=== PATIENT | female | born 1990 | race Caucasian/White ===

== ENCOUNTER → 2016-08-26 | Outpatient (CLI) | payer MEDICAID ==
[2016-08-26 20:46] LABS: BASO % 0.6 % (0.0-1.0); EOS # 0.2 K/mm3 (0.0-0.50); EOS % 2.6 % (0.0-3.0); LARGE UNSTAINED CELL # 0.1 K/mm3 (0.0-0.4); LARGE UNSTAINED CELL % 1.6 % (0.0-4.0); LYMPH # 2.3 K/mm3 (1.5-6.5); LYMPH % 31.1 % (24.0-44.0); MEAN CORPUSCULAR HEMOGLOBIN 30.4 pg (27.0-33.0); MEAN CORPUSCULAR HGB CONC 33.4 g/dl (32.0-36.5); MEAN CORPUSCULAR VOLUME 90.8 fl (80.0-96.0); MONO # 0.4 K/mm3 (0.0-0.8); NEUTROPHILS # 4.1 K/mm3 (1.8-7.7); NEUTROPHILS % 59.1 % (36.0-66.0); PLATELET COUNT, AUTOMATED 239 k/mm3 (150-450); RED CELL DISTRIBUTION WIDTH 13.1 % (11.5-14.5)
[2016-08-29 10:11] LABS: WHITE BLOOD COUNT 6.9 K/mm3 (4.0-10.0)
[2016-08-29 11:38] LABS: HIV SCRN NEGATIVE (NEGATIVE)
[2016-08-29 11:39] LABS: HIV SCRN1 NEGATIVE (NEGATIVE)
[2016-08-29 11:41] LABS: CONTROL LINE INT CTR LINE PRESENT
== END ==
LOC: M LRY 15:33
PROVIDERS: ATTEND Advanced Practice Midwife
DX: Z34.81 Encounter for supervision of other normal pregnancy, first trimester (principal)

== ENCOUNTER → 2016-11-29 | Outpatient (CLI) | payer MEDICAID ==
--- NOTE | 2016-11-29 17:14 | REP ---
Obstetric sonography: History: Supervision of , for anatomy. Findings: Scanning through the gravid uterus demonstrates a viable single intrauterine gestation in a cephalic lie. motion is observed and heart rate is recorded at 157 beats per minute. A posterior grade 0 placenta is seen without evidence of previa or abruption. Amniotic fluid is subjectively normal. Closed cervical length measured transabdominally is 3.9 cm. No extrauterine abnormalities observed. Exam quality is inhibited by maternal body habitus. No anomaly is seen. face and profile, diaphragm and spine are less than optimally seen or not seen due to position and maternal body habitus. The following additional anatomic structures are identified and felt to be unremarkable today: cranium, choroid plexus, cerebellum and posterior fossa, nuchal fold, lungs, four-chamber heart with left and right ventricular outflow tract views, left-sided stomach, abdominal wall cord insertion, three-vessel umbilical cord, kidneys and bladder, upper and lower extremities. Biometry chart: BPD 4.9 cm = 20 weeks 6 days HC 18.8 cm = 21 weeks 1 day AC 16.1 cm = 21 weeks 1 day FL 3.5 cm = 21 weeks 0 days HL 3.9 cm = 24 weeks 0 days CD 2.0 cm = 19 weeks 3 days HC/AC ratio normal 1.17. Cephalic index normal 0.72. Estimated weight 401 grams 0 pounds 14 ounces, 90th percentile for 20 weeks 0 days. Impression: Viable single intrauterine gestation at 20 weeks 6 days by today's composite criteria. anatomic survey less than complete as above. Signed by Maurice Lr MD 11/29/2016 05:24 P
== END ==
LOC: M LRY 13:54
PROVIDERS: ATTEND Advanced Practice Midwife
DX: Z34.82 Encounter for supervision of other normal pregnancy, second trimester (principal)

== ENCOUNTER → 2016-12-26 | Outpatient (CLI) | payer MEDICAID ==
[~2016-12-26] MED LIST: ACET50TA PO; FIOR1CAP PO; IBUP-1114 PO; METF500T13 PO; PRENTAB9 PO
--- NOTE | 2016-12-26 16:02 | REP ---
Clinical: Anatomical evaluation. Comparison: 11/29/2016 . Findings: Examination demonstrates a single live intrauterine in breech presentation. motion is identified by technologist. Placenta is noted posteriorly and grade zero without evidence for placenta previa or abruption. Amniotic fluid volume is normal. Cervix measures 3.5 cm in length and appears closed. No evidence for nuchal cord. Gestational age by LMP 23 weeks 6 days with VERONICA 04/18/2017 . Gestational age by current measurements 24 weeks 5 days with VERONICA 04/12/2017 . FHR equals 153 beats per minute. Estimated weight 735 grams ( 73rd percentile). Anatomical assessment demonstrates normal structures including cranium, choroid plexus, cavum, cerebellum/posterior fossa, lungs, diaphragm, stomach, cord insertion/three-vessel cord, bladder, and upper extremities. Limited evaluation of the facial features and spine are again noted along with moderate right hydronephrosis. Impression: 1. Single live intrauterine in breech presentation demonstrating appropriate interval growth. 2. Anatomical limitations as described above as well as right-sided hydronephrosis warrant reevaluation and follow-up. Signed by Williams Leiva MD 12/26/2016 03:54 P
== END ==
LOC: M LRY 13:47
PROVIDERS: ATTEND Advanced Practice Midwife
DX: Z34.82 Encounter for supervision of other normal pregnancy, second trimester (principal)

== ENCOUNTER → 2017-01-20 | Outpatient (CLI) | payer MEDICAID ==
[2017-01-20 13:36] LABS: MEAN CORPUSCULAR HEMOGLOBIN 31.4 pg (27.0-33.0); MEAN CORPUSCULAR HGB CONC 33.7 g/dl (32.0-36.5); RED CELL DISTRIBUTION WIDTH 13.9 % (11.5-14.5); WHITE BLOOD COUNT 9.9 K/mm3 (4.0-10.0)
== END ==
LOC: M SMT 08:32
PROVIDERS: ATTEND Advanced Practice Midwife
DX: Z34.82 Encounter for supervision of other normal pregnancy, second trimester (principal)

== ENCOUNTER → 2017-01-26 | Outpatient (CLI) | payer MEDICAID ==
--- NOTE | 2017-01-26 16:38 | REP ---
Obstetric ultrasound for follow-up of anatomy: Comparisons are 11/29/2016 and 12/26/2016. On the comparison studies, the facial features and spine could not be optimally demonstrated because of position. On the current study the facial features and spine are again unable to be satisfactorily demonstrated because of position. Remainder of the anatomy was previously unremarkable and is not repeated today. There is again a single intrauterine gestation in a vertex presentation. There is movement and cardiac activity with a heart rate of 150 beats per minute. There is a posterior placenta with no previa or abruptio with grade 2 maturity. The amniotic fluid volume subjectively is normal. Amniotic fluid index is 12.12 (and 23 - 22.9). The maternal adnexa and cul-de-sac are unremarkable. By the ultrasound today gestational age is 30 weeks 0 days. By the first ultrasound during this gestation 28 weeks 2 days and by LMP 20 weeks 2 days. weight is 1513 grams (3 pounds, ounces). This is the 88th percentile for 28 weeks 2 days. Signed by Anibal Mott MD 01/26/2017 04:30 P
== END ==
LOC: M LRY 14:11
PROVIDERS: ATTEND Advanced Practice Midwife
DX: Z34.82 Encounter for supervision of other normal pregnancy, second trimester (principal)

== ENCOUNTER → 2017-01-30 | Outpatient (CLI) | payer MEDICAID ==
[2017-01-30 20:33] LABS: MEAN CORPUSCULAR HEMOGLOBIN 30.8 pg (27.0-33.0); MEAN CORPUSCULAR HGB CONC 33.6 g/dl (32.0-36.5); MEAN CORPUSCULAR VOLUME 91.7 fl (80.0-96.0); RED CELL DISTRIBUTION WIDTH 13.7 % (11.5-14.5)
[2017-01-30 20:51] LABS: ALT/SGPT 20 U/L (12-78); AST/SGOT 12 U/L (15-37); BILIRUBIN,TOTAL 0.2 MG/DL (0.2-1.0); CREATININE FOR GFR 0.82 MG/DL (0.55-1.02); GLOMERULAR FILTRATION RATE > 60.0 (>60); URIC ACID 3.1 MG/DL (2.6-6.0)
== END ==
LOC: M WUC 15:59
PROVIDERS: ATTEND Obstetrics & Gynecology
DX: O16.3 Unspecified maternal hypertension, third trimester (principal); Z3A.00 Weeks of gestation of pregnancy not specified

== ENCOUNTER → 2017-02-03 | Outpatient (CLI) | payer MEDICAID | LOC: M LAB 08:02 | PROVIDERS: ATTEND Obstetrics & Gynecology | DX: O16.3 Unspecified maternal hypertension, third trimester (principal); Z3A.00 Weeks of gestation of pregnancy not specified ==

== ENCOUNTER → 2017-02-15 | Outpatient (CLI) | payer BC, MEDICAID ==
--- NOTE | 2017-02-15 15:19 | REP ---
OB ULTRASOUND: Real-time sonographic evaluation of gravid uterus performed. There is a single living intrauterine gestation, estimated gestational age 31 weeks 1 day, EDC 04/18/2017. Today's measurements indicate appropriate growth. BPD 81 mm = 31 weeks 3 days, 70th percentile HC 300 mm = 33 weeks 2 days, 83rd percentile AC 297 mm = 33 weeks 5 days, 88th percentile Femur length 62 mm = 32 weeks 2 days, 67th percentile HC/AC ratio 1.01, within normal range. Estimated weight 2118 grams, 87th percentile. Biophysical profile score is 8 out of 8. S/D ratio 3.26 within normal range. RI 0.69 within normal range. Today, the cerebellum, stomach, and bladder are visualized and are grossly unremarkable. position vertex. Amniotic fluid appears within normal limits. Placenta is fundal and grade 3 with no previa or abruption. heart rate is 144 beats per minute. Cervix is closed and measures 3.8 cm in length. IMPRESSION: Biophysical profile score 8 out of 8. Appropriate growth, as discussed in detail above. Signed by Anibal Staley MD 02/15/2017 05:25 P
== END ==
LOC: M RAD 13:56
PROVIDERS: ATTEND Specialist
DX: O13.3 Gestational [pregnancy-induced] hypertension without significant proteinuria, third trimester (principal); Z3A.31 31 weeks gestation of pregnancy

== ENCOUNTER → 2017-02-21 | Outpatient (CLI) | payer MEDICAID ==
--- NOTE | 2017-02-21 10:53 | REP ---
OB ULTRASOUND, BIOPHYSICAL PROFILE: Real-time sonographic evaluation of the gravid uterus performed. There is a single living intrauterine gestation. Estimated gestational age 32 weeks 0 days. EDC 04/18/2017. Feta heart rate 150 beats per minute. Amniotic fluid within normal limits. Amniotic fluid index (JOHN) is 10.8 within normal range of 8.6 - 24.2. Biophysical profile score is 8 out of 8. S/d ratio 2.61 within normal range of 2.5 - 3.5. RI 0.62 within normal range of 0.59 - 0.75. position vertex. Placenta is fundal and grade 3 with no previa or abruption. Signed by Anibal Staley MD 02/21/2017 04:49 P
== END ==
LOC: M RAD 09:13
PROVIDERS: ATTEND Specialist
DX: O13.3 Gestational [pregnancy-induced] hypertension without significant proteinuria, third trimester (principal); Z3A.00 Weeks of gestation of pregnancy not specified

== ENCOUNTER 2017-02-28 17:53 | Outpatient (CLI) | payer MEDICAID ==
[~2017-02-28] VITALS: Ht 167.6 cm; Wt 152.0 kg
[2017-02-28 18:15] VITALS: BP 142/67
[2017-02-28] MEDS ORDERED: PRENTAB9 PO (18:27)
== END 2017-02-28 19:00 | disposition home or self-care (01) ==
LOC: M LDO 17:53
PROVIDERS: ATTEND Specialist
DX: O36.8130 Decreased fetal movements, third trimester, not applicable or unspecified (principal); Z3A.33 33 weeks gestation of pregnancy; O24.415 Gestational diabetes mellitus in pregnancy, controlled by oral hypoglycemic drugs

== ENCOUNTER → 2017-02-28 | Outpatient (CLI) | payer MEDICAID ==
--- NOTE | 2017-02-28 13:42 | REP ---
BIOPHYSICAL PROFILE OB ULTRASOUND, 02/28/2017: COMPARISON: 02/21/2017 CLINICAL HISTORY: Gestational hypertension. Based on initial ultrasound, she would be 32 weeks 6 days, EDC 04/12/2017. Today's study shows a single intrauterine gestation in vertex presentation. skull shadowing limits evaluation of the cervix, its length cannot be measured. Amniotic fluid volume is visually normal with an index of 10.8, and the normal range is 8.6 to 24.2. Largest fluid pocket is 3.9 cm. Midcord umbilical artery Doppler shows S/D ratio 2.61 with normal forward diastolic flow and a resistive index of 0.62, also normal. Fundal placenta with some grade 3 maturation characteristics, no previa or abruption noted. No anatomic evaluation performed at this time. heart rate 150 and regular. BIOPHYSICAL PROFILE: Breathing 2 Movement 2 Tone 2 AFV 2 IMPRESSION: 1. Single intrauterine gestation in vertex presentation with skull shadowing the cervix. 2. Visually normal amniotic fluid and normal fluid index of 10.8 cm. 3. Normal cord Doppler S/D ratio, fundal grade 3 placenta without previa or abruption, and heart rate 150 and regular. 4. Biophysical profile score 8/8. Signed by Luciano Uriarte MD 02/28/2017 03:59 P
== END ==
LOC: M RAD 09:43
PROVIDERS: ATTEND Specialist
DX: O13.3 Gestational [pregnancy-induced] hypertension without significant proteinuria, third trimester (principal); Z3A.32 32 weeks gestation of pregnancy

== ENCOUNTER → 2017-03-07 | Outpatient (CLI) | payer MEDICAID ==
--- NOTE | 2017-03-07 10:44 | REP ---
Clinical: Gestational diabetes; growth re-evaluation. Comparison: 02/28/2017 . Findings: Examination demonstrates a single live intrauterine in cephalic presentation. motion is identified by technologist. Placenta is noted posteriorly and grade zero without evidence for placenta previa or abruption. Amniotic fluid volume is normal. Cervix measures 3.8 cm in length and appears closed. Nuchal cord cannot be excluded. Gestational age by LMP 34 weeks 0 days with VERONICA 04/18/2017 . Gestational age by current measurements 36 weeks 5 days with VERONICA 03/30/2017 . FHR equals 155 beats per minute. BPD 8.8 cm 35 weeks 3 days HC 32.5 cm 36 weeks 5 days AC 33.8 cm 37 weeks 5 days FL 7.1 cm 36 weeks 1 day HL 6.5 cm 37 weeks 4 days HC/AC ratio 0.96 Estimated weight 3082 grams (>97th percentile). BPP equals 8/8. JOHN equals 10.2 (8.1-24.8) Umbilical S/D ratio equals 3.30 (2.00-3.00) Impression: 1. Single live advanced gestation in cephalic presentation. Estimated weight is greater than 97 percentile. 2. Nuchal cord cannot be excluded. 3. Umbilical cord SD ratio minimally elevated. Signed by Williams Leiva MD 03/07/2017 10:35 A
== END ==
LOC: M RAD 09:41
PROVIDERS: ATTEND Specialist
DX: O13.3 Gestational [pregnancy-induced] hypertension without significant proteinuria, third trimester (principal); Z3A.00 Weeks of gestation of pregnancy not specified

== ENCOUNTER 2017-03-10 04:42 | Inpatient (IN) | payer MEDICAID ==
[~2017-03-10] VITALS: Ht 167.6 cm; Wt 164.1 kg
[2017-03-10] VITALS (36 sets, daily range): BP systolic 128–213; BP diastolic 60–105
[~2017-03-10 04:42] MED LIST changes: -ACET50TA PO; -FIOR1CAP PO; -IBUP-1114 PO; -METF500T13 PO
[2017-03-10] MEDS ORDERED: LR 1,000 ML IV SCH (06:15)
[2017-03-10] MEDS ORDERED: FIORICET TAB PO ONE ×2 (06:30→16:00)
--- NOTE | 2017-03-10 06:35 | ED PDOC ---
Provider Note 26-year-old 1, estimated date of delivery 04/18/2017. Presents at 34 weeks 3 days with complaints of severe headache since 01:30 this morning and associated vomiting. She reports taking 1 Fioricet at 0130 and a second one at 02:30 without relief from the headache. She denies visual disturbances, chest pain, shortness of breath. Fetus is active. has been complicated by morbid obesity, chronic hypertension and A2 gestational diabetes. She is currently taking metformin but no antihypertensive meds. She has been seen previously on labor and delivery for gestational hypertension and rule out preeclampsia. Patient appears uncomfortable, photophobic. Temperature 99.0 initial blood pressure 180/84 with repeat blood pressure of 163 /77. heart 145, moderate variability with accelerations, category 1 tracing. No contractions noted on the monitor. Assessment primipara at 34 weeks, chronic hypertension and severe headache. Reassuring status. Plan repeat preeclamptic panel, consult Belle Loomis CNM Mar 10, 2017 06:35
[2017-03-10 06:49] LABS: ALT/SGPT 20 U/L (12-78); AST/SGOT 16 U/L (15-37); BILIRUBIN,TOTAL 0.1 MG/DL (0.2-1.0); CREATININE FOR GFR 0.54 MG/DL (0.55-1.02); GLOMERULAR FILTRATION RATE > 60.0 (>60); URIC ACID 4.6 MG/DL (2.6-6.0)
--- NOTE | 2017-03-10 06:59 | ED PDOC ---
Provider Note CBC pending. AST 16, ALT 20. Uric Acid 4.6 Pro/Cre ratio 0.55 CBC pending Will consult Belle Batista CNM Mar 10, 2017 06:59
[2017-03-10 07:17] LABS: MEAN CORPUSCULAR HEMOGLOBIN 30.4 pg (27.0-33.0); MEAN CORPUSCULAR HGB CONC 33.6 g/dl (32.0-36.5); MEAN CORPUSCULAR VOLUME 90.7 fl (80.0-96.0); RED CELL DISTRIBUTION WIDTH 13.7 % (11.5-14.5); WHITE BLOOD COUNT 8.1 K/mm3 (4.0-10.0)
[2017-03-10] MEDS ORDERED: PROMETHAZINE INJ 25 MG/ML VIAL (J2550) IV PRN (09:30)
[2017-03-10] MEDS ORDERED: BUTORPHANOL 2 MG/ML INJ (J0595) IV ONE (09:30)
[2017-03-10] MEDS ORDERED: LABETALOL HCL 100 MG/20 ML VIAL IV ONE (09:30)
[2017-03-10] MEDS: BETAMETHASONE SOLUSPAN 6MG/ML INJ 5ML (J0702) IM SCH (10:02)
[2017-03-11] VITALS (8 sets, daily range): BP systolic 121–163; BP diastolic 58–109
[2017-03-11] MEDS: BETAMETHASONE SOLUSPAN 6MG/ML INJ 5ML (J0702) IM SCH (09:47)
--- NOTE | 2017-03-11 10:14 | DSES ---
DATE OF ADMISSION: 03/10/2017 DATE OF DISCHARGE: DISCHARGE DIAGNOSES: 1. Chronic hypertension. 2. Gestational diabetes. 3. Headache, resolved. DISCHARGE CONDITION: Stable. PROCEDURES PERFORMED WHILE IN THE HOSPITAL: She was provided with steroids for lung maturity. HISTORY AND HOSPITAL COURSE: Mrs. Ga is a 26-year-old, 1, who presented to labor and delivery at 34 weeks with complaints of headache in this patient with known chronic hypertension as well as gestational diabetes. She has a history also of headaches and was using Fioricet initially which provided relief, but later did not relieve her headache. She was admitted to labor and delivery and was provided Phenergan and Stadol which did relieve her headache. She did receive a subsequent dose of Fioricet which completely resolved her headache. She was monitored here where initially she had labile blood pressures. Once her headache resolved, her blood pressures returned to milder ranged, but mostly normal blood pressures. She completed her course of steroids for lung maturity and remained stable throughout this time and was discharged home with followup on Monday. DISCHARGE MEDICATIONS: - Fioricet - she was also instructed to resume her metformin DISCHARGE INSTRUCTIONS: 1. She has a followup appointment on Monday. 2. She was instructed on labor and precautions as well as preeclamptic precautions. 3. kick count instructions. PHYSICAL EXAM ON DATE OF DISCHARGE: Her vital signs were stable. She was afebrile. She has Category 1 heart tracing with irregular contractions on tocometer. Her general appearance is well appearing, in no acute distress. Her lungs were clear to auscultation bilaterally. Cardiovascular: Heart regular rate and rhythm. Abdomen gravid, nontender.
[2017-03-11] MEDS ORDERED: FIOR1CAP PO (10:16)
[2017-03-11] MEDS ORDERED: METF500T13 PO (10:16)
[2017-03-15 08:06] LABS: GC Butalbital 631 ng/mL (Cutoff=200)
== END 2017-03-11 10:35 | disposition home or self-care (01) | DRG 566 ==
LOC: M LDO 04:42 → M LDI 09:01 → M LDO 09:07 → M LDI 09:08
PROVIDERS: ADMIT Obstetrics & Gynecology; ATTEND Advanced Practice Midwife
DX: O10.913 Unspecified pre-existing hypertension complicating pregnancy, third trimester (principal); E66.01 Morbid (severe) obesity due to excess calories; O24.415 Gestational diabetes mellitus in pregnancy, controlled by oral hypoglycemic drugs; Z3A.34 34 weeks gestation of pregnancy; R51 Headache; O99.213 Obesity complicating pregnancy, third trimester

== ENCOUNTER 2017-03-14 13:06 | Inpatient (IN) | payer MEDICAID ==
[~2017-03-14] VITALS: Ht 167.6 cm; Wt 165.0 kg
[2017-03-14] VITALS (13 sets, daily range): BP systolic 125–188; BP diastolic 62–92
[~2017-03-14 13:06] MED LIST changes: -ACET50TA PO; -IBUP-1114 PO
[2017-03-14 16:01] LABS: MEAN CORPUSCULAR HEMOGLOBIN 29.9 pg (27.0-33.0); MEAN CORPUSCULAR HGB CONC 33.3 g/dl (32.0-36.5); MEAN CORPUSCULAR VOLUME 89.8 fl (80.0-96.0); RED CELL DISTRIBUTION WIDTH 14.1 % (11.5-14.5); WHITE BLOOD COUNT 10.4 K/mm3 (4.0-10.0)
[2017-03-14] MEDS: miSOPROStol 50 MCG 1/2 TAB (S0191) PO SCH ×2 (16:06→20:30)
[2017-03-14 16:29] LABS: ALT/SGPT 23 U/L (12-78); AST/SGOT 17 U/L (15-37); BILIRUBIN,TOTAL 0.1 MG/DL (0.2-1.0); CREATININE FOR GFR 0.57 MG/DL (0.55-1.02); GLOMERULAR FILTRATION RATE > 60.0 (>60); URIC ACID 4.9 MG/DL (2.6-6.0)
[2017-03-14] MEDS ORDERED: GLUCAGON FOR INJ 1 MG VIAL (J1610) SC PRN (21:00)
[2017-03-14] MEDS ORDERED: GLUCOSE 4 GM CHEW TABLET PO PRN (21:00)
[2017-03-14] MEDS ORDERED: DEXTROSE 50% 50 ML SYRINGE IV PRN (21:00)
[2017-03-14] MEDS ORDERED: HumaLOG INSULIN (NovoLOG) PER UNIT As Ordered ONE (21:01)
[2017-03-14] MEDS: HumaLOG INSULIN (NovoLOG) PER UNIT SC SCH (21:03)
--- NOTE | 2017-03-14 22:02 | HPE ---
DATE OF ADMISSION: 03/14/2017 REASON FOR ADMISSION: Induction of labor. HISTORY OF PRESENT ILLNESS: Ms. Ga is a 26-year-old 1 who presents at 35 weeks 0 days estimated gestational age by her last menstrual period, confirmed by first trimester ultrasound for induction of labor secondary to chronic hypertension with superimposed pre-eclampsia. Ms. Ga was seen earlier today at the office with a severe headache, that was unrelieved with Fioricet. She was also noted to have elevated blood pressure in the severe range 178/98. She was seen and evaluated this week in labor and delivery where she completed a course of steroids. Her course has also been remarkable for A2 gestational diabetes as well as obesity. PAST MEDICAL HISTORY: Obesity. Hypertension. PAST SURGICAL HISTORY: She has had surgery on her left hand. OBSTETRICAL HISTORY: She is 1. MEDICATIONS: Includes: - vitamins - Fioricet - metformin ALLERGIES: No known drug allergies. PHYSICAL EXAMINATION: Vital signs: Blood pressure 170s/90s. She is afebrile. She has a category 1 tracing. No contractions on tocometer. General appearance: No acute distress. Lungs: Clear to auscultation bilaterally. Cardiovascular: Heart regular rate and rhythm. Abdomen: Gravid. Her estimated weight 3200 grams. Her cervical exam shows long and closed. LABS: Blood type 0 negative. Antibody screen is negative. Rubella immune. RPR is not reactive. Hepatitis surface antigen negative. HIV negative. Hepatitis is nonreactive. Chlamydia and gonorrhea screen is negative. She had an elevated one hour Glucola as well as abnormal glucose on tolerance test. She is GBS positive. ASSESSMENT: 1. Ms. Ga is a 26-year-old 1 at 35 weeks with chronic hypertension with superimposed pre-eclampsia based on severely elevated blood pressures and persistent headache. 2. Reassuring status. 3. GBS positive. PLAN: 1. Admit to labor and delivery. CBC, RPR type and screen. Pre-eclamptic panel. 2. Labetalol as needed to maintain blood pressures below severe range. 3. Antibiotics in active labor after ruptured membranes for GBS positive status. 4. Magnesium sulfate in active phase of labor and plan to continue 24 hours for neuro prophylaxis. [facility]
[2017-03-15] VITALS (39 sets, daily range): BP systolic 112–186; BP diastolic 55–107
[2017-03-15] MEDS: miSOPROStol 50 MCG 1/2 TAB (S0191) PO SCH (00:30)
[2017-03-15] MEDS ORDERED: miSOPROStol 100 MCG TAB (S0191) PO SCH (05:00)
[2017-03-15] MEDS ORDERED: PENICILLIN G POTASSIUM IV 5 MU in D5W MINI-BAG PLUS 100 ML IV STA ×2 (07:30→18:04)
[2017-03-15] MEDS ORDERED: miSOPROStol 50 MCG 1/2 TAB (S0191) PO SCH (08:15)
[2017-03-15] MEDS: HumaLOG INSULIN (NovoLOG) PER UNIT SC SCH (10:46)
[2017-03-15] MEDS ORDERED: PENICILLIN G POTASSIUM IV 2.5 MU in D5W 100 ML IV SCH (11:30)
[2017-03-15] MEDS ORDERED: LR 1,000 ML IV SCH (13:26)
[2017-03-15] MEDS ORDERED: OXYTOCIN DRIP 30 UNITS in APPROPRIATE DILUENT 1 EA IV SCH (13:30)
[2017-03-15] MEDS ORDERED: LABETALOL 200 MG TAB PO ONE (19:15)
[2017-03-15] MEDS ORDERED: FENTANYL 2MCG/ML ROPIVACAINE 0.2% IN 0.9% NACL 200ML IVBAG As Ordered ONE (20:35)
[2017-03-15] MEDS: PENICILLIN G POTASSIUM IV 2.5 MU in D5W 100 ML IV SCH (22:30)
[2017-03-16] VITALS (37 sets, daily range): BP systolic 89–175; BP diastolic 52–110
[2017-03-16] MEDS: PENICILLIN G POTASSIUM IV 2.5 MU in D5W 100 ML IV SCH ×3 (02:45→12:01)
[2017-03-16] MEDS ORDERED: RHOGAM 300 MCG (1500 IU) INJ (J2790) IM SCH (09:00)
[2017-03-16] MEDS ORDERED: MEASLES,MUMPS,RUBELLA VACCINE INJ (MMR-II) (90707) SC SCH (09:00)
[2017-03-16] MEDS: PRENATAL VITAMINS CHEWABLE TABLET PO SCH (09:00)
[2017-03-16] MEDS: LR 1,000 ML IV SCH ×2 (13:40→21:40)
[2017-03-16] MEDS ORDERED: DOCUSATE SODIUM 100 MG CAP PO PRN (13:45)
[2017-03-16] MEDS ORDERED: OXYTOCIN INJ 10 UNITS/ML VIAL (J2590) IV ONE (13:45)
[2017-03-16] MEDS ORDERED: IBUPROFEN 800 MG TAB PO PRN (13:45)
[2017-03-16] MEDS ORDERED: PROMETHAZINE 25 MG TAB PO PRN (13:45)
[2017-03-16] MEDS ORDERED: ACETAMINOPHEN 500 MG TAB PO PRN (13:45)
[2017-03-16] MEDS ORDERED: ONDANSETRON 4MG/2ML VIAL (J2405) IV PRN (13:45)
[2017-03-16] MEDS ORDERED: DIBUCAINE 1% OINTMENT 30GM TOP PRN (13:45)
[2017-03-17] MEDS: LR 1,000 ML IV SCH ×3 (05:40→21:40)
[2017-03-17 06:44] VITALS: BP 112/58
[2017-03-17] MEDS: PRENATAL VITAMINS CHEWABLE TABLET PO SCH (10:16)
[2017-03-17 18:14] VITALS: BP 141/81
[2017-03-18] MEDS: LR 1,000 ML IV SCH (05:40)
[2017-03-18 06:00] VITALS: BP 154/67
[2017-03-18] MEDS: PRENATAL VITAMINS CHEWABLE TABLET PO SCH (09:52)
[2017-03-18] MEDS ORDERED: IBUP-1114 PO (10:22)
[2017-03-18] MEDS ORDERED: ACET50TA PO (10:22)
[2017-03-20 08:06] LABS: GC Butalbital 457 ng/mL (Cutoff=200)
== END 2017-03-18 11:05 | disposition home or self-care (01) | DRG 560 ==
LOC: M LDI 13:06 → M OBS 03-16 16:13
PROVIDERS: ADMIT Obstetrics & Gynecology; ATTEND Obstetrics & Gynecology
PROC: 10E0XZZ Delivery of Products of Conception, External Approach (ICD-10-PCS; principal; 2017-03-16)
PROC: 0KQM0ZZ Repair Perineum Muscle, Open Approach (ICD-10-PCS; 2017-03-16)
DX: O11.4 Pre-existing hypertension with pre-eclampsia, complicating childbirth (principal); E66.9 Obesity, unspecified; O24.425 Gestational diabetes mellitus in childbirth, controlled by oral hypoglycemic drugs; Z37.0 Single live birth; Z3A.35 35 weeks gestation of pregnancy; O99.214 Obesity complicating childbirth; O99.820 Streptococcus B carrier state complicating pregnancy; O69.82X0 Labor and delivery complicated by other cord entanglement, without compression, not applicable or unspecified; O70.1 Second degree perineal laceration during delivery

== ENCOUNTER → 2017-03-14 | Outpatient (CLI) | payer MEDICAID ==
[~2017-03-14] MED LIST changes: +ACET50TA PO; +FIOR1CAP PO; +IBUP-1114 PO; +METF500T13 PO
--- NOTE | 2017-03-14 10:56 | REP ---
Obstetric ultrasound for well-being and hypertension. Based on the first ultrasound during this gestation gestational age is 35 weeks 6 days with an VERONICA of 04/12/2017. There is a single intrauterine gestation in a vertex presentation. heart rate is 160 beats per minute. Subjectively the amniotic fluid volume is normal. The amniotic fluid index is 7.2 (7.9 - 24.9). biophysical profile: Breathing 2 Movement 2 Tone 2 AFV 2 Total / Umbilical artery Doppler assessment: SD ratio 2.98. (2.00 - 3.00) Resistive index 0.66 (0.59 dash 0.75) Diastolic flow velocity 18.8 cm/sec. (Normal is greater than 10 cm/sec). Signed by Anibal Mott MD 03/14/2017 10:48 A
== END ==
LOC: M RAD 10:01
PROVIDERS: ATTEND Specialist
DX: Z36 Encounter for antenatal screening of mother (principal); Z3A.00 Weeks of gestation of pregnancy not specified

== ENCOUNTER → 2017-06-27 | Outpatient (CLI) | payer MEDICAID, MEDICARE ==
[2017-06-27 08:38] LABS: GLUCOSE, FASTING 95 MG/DL (70-105)
[2017-06-27 08:50] LABS: ESTIMATED AVERAGE GLUCOSE 108 MG/DL (60-110); HEMOGLOBIN A1c 5.4 %
[2017-06-27 09:59] LABS: 1 HR GLUCOSE 156 MG/DL (LESS THAN 199)
[2017-06-27 10:59] LABS: 2 HR GLUCOSE 128 MG/DL (LESS THAN 140)
== END ==
LOC: M LAB 07:58
DX: Z86.32 Personal history of gestational diabetes (principal)
CPT/HCPCS: 82951

== ENCOUNTER 2017-10-21 09:31 | Emergency (ER) | payer MEDICARE, MEDICAID ==
[2017-10-21] MEDS: GI COCKTAIL 50ML BTL(HYOSCYAMINE/MAALOX/LIDOCAINE VISCOUS)(1:3:1) PO (10:15)
[2017-10-21] MEDS: ONDANSETRON 4 MG ORAL DISINTEGRATING TAB (Q0162 PER 1MG) PO (10:15)
[2017-10-21 10:35] LABS: BASO % 0.4 % (0.0-1.0); EOS # 0.1 10^3/uL (0.0-0.50); EOS % 1.1 % (0.0-3.0); HEMATOCRIT 39.7 % (36.0-47.0); HEMOGLOBIN 13.1 g/dl (12.0-15.5); IMMATURE GRANULOCYTE % 0.4 % (0-3.0); LYMPH # 2.5 10^3/uL (1.5-6.5); LYMPH % 30.4 % (24.0-44.0); MEAN CORPUSCULAR HEMOGLOBIN 28.5 pg (27.0-33.0); MEAN CORPUSCULAR VOLUME 86.5 fl (80.0-96.0); MONO # 0.5 10^3/uL (0.0-0.8); MONO % 6.3 % (0.0-5.0); NEUTROPHILS % 61.4 % (36.0-66.0); PLATELET COUNT, AUTOMATED 242 10^3/uL (150-450); RED BLOOD COUNT 4.59 10^6/uL (4.00-5.40); WHITE BLOOD COUNT 8.1 10^3/uL (4.0-10.0)
[2017-10-21 11:13] LABS: ALKALINE PHOSPHATASE 118 U/L (45-117); ALT/SGPT 26 U/L (12-78); ANION GAP 5 MEQ/L (8-16); AST/SGOT 14 U/L (7-37); BILIRUBIN,TOTAL 0.2 MG/DL (0.2-1.0); BLOOD UREA NITROGEN 23 MG/DL (7-18); CARBON DIOXIDE LEVEL 26 MEQ/L (21-32); CHLORIDE LEVEL 108 MEQ/L (98-107); CPK CREATINE PHOSPHOKINASE 91 U/L (26-192); GLOMERULAR FILTRATION RATE > 60.0 (>60); GLUCOSE, FASTING 90 MG/DL (70-100); LIPASE 156 U/L (73-393); MB/CK RELATIVE INDEX 1.09 (< OR =4); POTASSIUM SERUM 4.5 MEQ/L (3.5-5.1); SODIUM LEVEL 139 MEQ/L (136-145); TROPONIN I < 0.02 NG/ML (< 0.10)
== END 2017-10-21 11:46 | disposition home or self-care (01) ==
LOC: M ED 09:31
DX: K21.9 Gastro-esophageal reflux disease without esophagitis (principal); R06.02 Shortness of breath; R11.0 Nausea; Z82.49 Family history of ischemic heart disease and other diseases of the circulatory system; Z91.030 Bee allergy status; Z79.899 Other long term (current) drug therapy
CPT/HCPCS: Q0162

== ENCOUNTER → 2018-03-01 | Outpatient (CLI) | payer MEDICAID, MEDICARE ==
[2018-03-01 10:54] LABS: 1 HR GLUCOSE 151 MG/DL (LESS THAN 199)
[2018-03-01 10:54] LABS: GLUCOSE, FASTING 95 MG/DL (70-100)
[2018-03-01 12:08] LABS: 2 HR GLUCOSE 121 MG/DL (LESS THAN 140)
== END ==
LOC: M LAB 08:28
DX: E66.01 Morbid (severe) obesity due to excess calories (principal)
CPT/HCPCS: 82951

== ENCOUNTER → 2018-07-05 | Outpatient (REF) | payer OTHER ==
[~2018-07-05] MED LIST changes: +IBUP-1114 PO; +MAPA500T2 PO; +RANI15TA PO; +SERT-155 PO
== END ==
LOC: M SFHCLERA 18:21
PROVIDERS: ATTEND Physician Assistant
DX: R50.9 Fever, unspecified (principal)

== ENCOUNTER 2018-11-05 07:28 | Emergency (ER) | payer MEDICARE, MEDICAID ==
[~2018-11-05] VITALS: Ht 167.6 cm; Wt 168.2 kg
--- NOTE | 2018-11-05 07:57 | REP ---
Clinical: Acute chest pain . Comparison: 10/21/2017 . Findings: The mediastinum and cardiac silhouette are stable and within normal limits for portable technique. The lung bryant are clear without acute consolidation, effusion, or pneumothorax. Skeletal structures are intact. Impression: No acute cardiopulmonary process appreciated. Electronically Signed by Williams Leiva MD 11/05/2018 07:49 A
[2018-11-05] MEDS ORDERED: ONDANSETRON 4MG/2ML VIAL (J2405) As Ordered ONE (08:05)
[2018-11-05 08:13] LABS: BASO % 0.3 % (0.0-1.0); EOS # 0.1 10^3/uL (0.0-0.50); EOS % 1.4 % (0.0-3.0); HEMATOCRIT 42.5 % (36.0-47.0); HEMOGLOBIN 14.1 g/dl (12.0-15.5); LYMPH # 2.7 10^3/uL (1.5-6.5); LYMPH % 37.2 % (24.0-44.0); MEAN CORPUSCULAR HEMOGLOBIN 29.1 pg (27.0-33.0); MEAN CORPUSCULAR HGB CONC 33.2 g/dl (32.0-36.5); MEAN CORPUSCULAR VOLUME 87.6 fl (80.0-96.0); MONO # 0.6 10^3/uL (0.0-0.8); MONO % 7.9 % (0.0-5.0); NEUTROPHILS # 3.9 10^3/uL (1.8-7.7); NEUTROPHILS % 53.1 % (36.0-66.0); PLATELET COUNT, AUTOMATED 221 10^3/uL (150-450); RED BLOOD COUNT 4.85 10^6/uL (4.00-5.40); WHITE BLOOD COUNT 7.4 10^3/uL (4.0-10.0)
[2018-11-05] MEDS ORDERED: ONDANSETRON 4 MG ORAL DISINTEGRATING TAB (Q0162 PER 1MG) PO ONE (08:15)
[2018-11-05 08:58] LABS: ALT/SGPT 24 U/L (12-78); BILIRUBIN,DIRECT < 0.1 MG/DL (0.0-0.2); BILIRUBIN,TOTAL 0.2 MG/DL (0.2-1.0); BLOOD UREA NITROGEN 18 MG/DL (7-18); CALCIUM LEVEL 9.7 MG/DL (8.5-10.1); CARBON DIOXIDE LEVEL 26 MEQ/L (21-32); CHLORIDE LEVEL 106 MEQ/L (98-107); CK-MB VALUE MASS < 1.0 NG/ML (<3.6); CPK CREATINE PHOSPHOKINASE 105 U/L (26-192); CREATININE FOR GFR 0.74 MG/DL (0.55-1.30); GLOMERULAR FILTRATION RATE > 60.0 (>60); GLUCOSE, FASTING 97 MG/DL (70-100); LIPASE 124 U/L (73-393); MB/CK RELATIVE INDEX 0.95 (< OR =4); POTASSIUM SERUM 4.6 MEQ/L (3.5-5.1); SODIUM LEVEL 137 MEQ/L (136-145); TOTAL PROTEIN 7.9 GM/DL (6.4-8.2); TROPONIN I < 0.02 NG/ML (< 0.10)
[2018-11-05] MEDS ORDERED: PRIL20TA2 PO (09:47)
[2018-11-05 10:00] VITALS: BP 126/61
--- NOTE | 2018-11-05 12:13 | ECGEPIP ---
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
== END 2018-11-05 10:06 | disposition home or self-care (01) ==
LOC: M ED 07:28
DX: R07.89 Other chest pain (principal); K29.70 Gastritis, unspecified, without bleeding
CPT/HCPCS: 71045; 80048; 80076; 82550; 82553; 83690; 84484; 85025; 93005; 93041; 94760; 99285; Q0162

== ENCOUNTER → 2020-01-30 | Outpatient (CLI) | payer MEDICARE, MEDICAID ==
[~2020-01-30] MED LIST changes: +PRIL20TA2 PO; -SERT-155 PO; +SERT50TA29 PO
[2020-03-28 15:47] LABS: HEMOGLOBIN A1c 5.3 %
== END ==
LOC: M LAB 13:50
PROVIDERS: ATTEND Surgery
DX: Z86.39 Personal history of other endocrine, nutritional and metabolic disease (principal)

== ENCOUNTER → 2020-02-28 | Outpatient (CLI) | payer MEDICARE, MEDICAID ==
[2020-02-28 19:33] LABS: BASO % 0.2 % (0.0-1.0); EOS # 0.1 10^3/uL (0.0-0.5); EOS % 1.3 % (0.0-3.0); HEMATOCRIT 39.3 % (36.0-47.0); HEMOGLOBIN 12.6 g/dl (12.0-15.5); LYMPH # 1.9 10^3/uL (1.5-5.0); LYMPH % 31.4 % (24.0-44.0); MEAN CORPUSCULAR HGB CONC 32.1 g/dl (32.0-36.5); MEAN CORPUSCULAR VOLUME 90.6 fl (80.0-96.0); MONO # 0.5 10^3/uL (0.0-0.8); NEUTROPHILS # 3.5 10^3/uL (1.5-8.5); NEUTROPHILS % 58.9 % (36.0-66.0); PLATELET COUNT, AUTOMATED 197 10^3/uL (150-450); RED BLOOD COUNT 4.34 10^6/uL (4.00-5.40)
[2020-02-28 20:02] LABS: ALBUMIN 3.8 GM/DL (3.2-5.2); ALT/SGPT 37 U/L (12-78); AMYLASE 39 U/L (25-115); BILIRUBIN,TOTAL 0.3 MG/DL (0.2-1.0); BLOOD UREA NITROGEN 5 MG/DL (7-18); CALCIUM LEVEL 9.1 MG/DL (8.5-10.1); CARBON DIOXIDE LEVEL 25 MEQ/L (21-32); CHLORIDE LEVEL 106 MEQ/L (98-107); CK-MB VALUE MASS < 1.0 NG/ML (<3.6); CPK CREATINE PHOSPHOKINASE 55 U/L (26-192); CREATININE FOR GFR 0.42 MG/DL (0.55-1.30); GLOMERULAR FILTRATION RATE > 60.0 (>60); GLUCOSE, FASTING 88 MG/DL (70-100); LIPASE 169 U/L (73-393); MB/CK RELATIVE INDEX 1.82 (< OR =4); POTASSIUM SERUM 4.1 MEQ/L (3.5-5.1); SODIUM LEVEL 139 MEQ/L (136-145); TOTAL PROTEIN 7.1 GM/DL (6.4-8.2); TROPONIN I < 0.02 NG/ML (< 0.10)
== END ==
LOC: M WUC 17:03
PROVIDERS: ATTEND Nurse Practitioner Family
DX: R10.816 Epigastric abdominal tenderness (principal)

== ENCOUNTER → 2020-02-28 | Outpatient (REF) | payer MEDICARE, MEDICAID | LOC: M LAB REF 19:04 | PROVIDERS: ATTEND Nurse Practitioner Family | DX: N39.0 Urinary tract infection, site not specified (principal) ==

== ENCOUNTER → 2020-11-26 | Outpatient (CLI) | payer SELFPAY ==
[~2020-11-26] MED LIST changes: +BUSP10TA PO; +CALC250T PO; +CYAN100050 PO; +FLIN1CHW PO; +FLUO10CA16 PO
== END ==
LOC: M LABSMTC 10:08
PROVIDERS: ATTEND Pediatrics
DX: Z20.828 Contact with and (suspected) exposure to other viral communicable diseases (principal); Z11.59 Encounter for screening for other viral diseases

== ENCOUNTER 2020-11-29 02:01 | Observation (INO) | payer MEDICARE, MEDICAID ==
[~2020-11-29] VITALS: Ht 167.6 cm; Wt 97.0 kg
[~2020-11-29 02:01] MED LIST changes: -BUSP10TA PO; -CALC250T PO; -CYAN100050 PO; -FLIN1CHW PO; -FLUO10CA16 PO
--- NOTE | 2020-11-29 04:06 | REPVR ---
PROCEDURE INFORMATION: Exam: XR Chest Exam date and time: 11/29/2020 3:02 AM Age: 30 years old Clinical indication: Other: Chest pain TECHNIQUE: Imaging protocol: XR of the chest. Views: 1 view. COMPARISON: CR PORTABLE CHEST X-RAY 11/05/2018 7:43 AM FINDINGS: Lungs: There is no visualized lung consolidation. Prominence of pulmonary vascular markings within the lungs bilaterally. Pleural spaces: No pleural effusion. No pneumothorax. Heart/Mediastinum: No cardiomegaly. Bones/joints: No visualized acute osseous abnormality. IMPRESSION: 1. There is no visualized lung consolidation. 2. Prominence of pulmonary vascular markings within the lungs bilaterally. Electronically signed by: Dc Hassan On 11/29/2020 04:05:34 AM
[2020-11-29 06:18] LABS: HCG, SERUM QUALITATIVE NEGATIVE (NEGATIVE)
[2020-11-29 06:21] LABS: BLOOD UREA NITROGEN 9 MG/DL (7-18); CALCIUM LEVEL 8.9 MG/DL (8.5-10.1); CARBON DIOXIDE LEVEL 24 MEQ/L (21-32); CHLORIDE LEVEL 112 MEQ/L (98-107); CK-MB VALUE MASS < 1.0 NG/ML (<3.6); CPK CREATINE PHOSPHOKINASE 85 U/L (26-192); CREATININE FOR GFR 0.64 MG/DL (0.55-1.30); GLOMERULAR FILTRATION RATE > 60.0 (>60); GLUCOSE, FASTING 119 MG/DL (70-100); HEMATOCRIT 37.2 % (36.0-47.0); HEMOGLOBIN 12.2 g/dl (12.0-15.5); LYMPH # 0.9 10^3/uL (1.5-5.0); LYMPH % 18.7 % (24.0-44.0); MB/CK RELATIVE INDEX 1.18 (< OR =4); MEAN CORPUSCULAR HEMOGLOBIN 30.4 pg (27.0-33.0); MEAN CORPUSCULAR HGB CONC 32.8 g/dl (32.0-36.5); MEAN CORPUSCULAR VOLUME 92.8 fl (80.0-96.0); MONO # 0.2 10^3/uL (0.0-0.8); NEUTROPHILS # 3.6 10^3/uL (1.5-8.5); NEUTROPHILS % 75.9 % (36.0-66.0); NT-PRO BNP 89 PG/ML (<125); PLATELET COUNT, AUTOMATED 216 10^3/uL (150-450); POTASSIUM SERUM 4.4 MEQ/L (3.5-5.1); RED BLOOD COUNT 4.01 10^6/uL (4.00-5.40); SODIUM LEVEL 142 MEQ/L (136-145); TROPONIN I < 0.02 NG/ML (< 0.10); WHITE BLOOD COUNT 4.8 10^3/uL (4.0-10.0)
--- NOTE | 2020-11-29 06:31 | ECGEPIP ---
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
[2020-11-29] MEDS ORDERED: ACETAMINOPHEN 500 MG TAB PO ONE (06:40)
[2020-11-29] MEDS ORDERED: NS 1,000 ML IV ONE (06:40)
[2020-11-29] MEDS ORDERED: ISOVUE-370 76% 100ML VIAL As Ordered ONE ×2 (06:47→09:22)
--- NOTE | 2020-11-29 07:25 | REPVR ---
PROCEDURE INFORMATION: Exam: CT Head Without Contrast Exam date and time: 11/29/2020 7:03 AM Age: 30 years old Clinical indication: Pain; Headache not specified; Additional info: New headache, no pmh, ongoing 1 week, dizziness TECHNIQUE: Imaging protocol: Computed tomography of the head without contrast. Radiation optimization: All CT scans at this facility use at least one of these dose optimization techniques: automated exposure control; mA and/or kV adjustment per patient size (includes targeted exams where dose is matched to clinical indication); or iterative reconstruction. COMPARISON: No relevant prior studies available. FINDINGS: Brain: There is a subtle faint density in the left sylvian fissure on axial image 12 and coronal image 19. No intra-axial hemorrhage. Unremarkable white matter. No mass effect. Cerebral ventricles: No ventriculomegaly. Paranasal sinuses: Visualized sinuses are unremarkable. No fluid levels. Mastoid air cells: Visualized mastoid air cells are well aerated. Bones/joints: No fracture seen. Soft tissues: Unremarkable. IMPRESSION: Subtle faint density in the left sylvian fissure most likely crossing vessel or artifact however subtle of subarachnoid blood cannot be completely excluded. Follow-up CT scan in 6-12 hours is suggested. Electronically signed by: Julio De Los Santos On 11/29/2020 07:24:28 AM
--- NOTE | 2020-11-29 07:27 | REPVR ---
PROCEDURE INFORMATION: Exam: CTA Chest With Contrast Exam date and time: 11/29/2020 7:03 AM Age: 30 years old Clinical indication: Other: Dizziness; Additional info: Dizziness, tachycardia RO pe TECHNIQUE: Imaging protocol: Computed tomographic angiography of the chest with contrast. 3D rendering (Not supervised by radiologist): MIP and/or 3D reconstructed images were created by the technologist. Radiation optimization: All CT scans at this facility use at least one of these dose optimization techniques: automated exposure control; mA and/or kV adjustment per patient size (includes targeted exams where dose is matched to clinical indication); or iterative reconstruction. Contrast material: ISOVUE 370; Contrast volume: 75 ml; Contrast route: INTRAVENOUS (IV); COMPARISON: CR PORTABLE CHEST X-RAY 11/29/2020 2:37 AM FINDINGS: Pulmonary arteries: The study is nondiagnostic for the evaluation of segmental and subsegmental pulmonary and arteries due to heterogeneous and poor opacification. No central filling defect seen in the pulmonary trunk or right or left main pulmonary arteries. The pulmonary trunk is normal in caliber measuring 2.5 cm in diameter. Aorta: Evaluation of the ascending aorta is limited due to pulsation artifact. Otherwise, No aortic aneurysm or aortic dissection seen. Lungs: Unremarkable. No consolidation. No masses. Pleural spaces: Unremarkable. No pneumothorax. No pleural effusion. Heart: The heart is normal in size. There is no pericardial effusion. Lymph nodes: Unremarkable. No enlarged lymph nodes. Stomach and bowel: The patient is status post gastric bypass with grossly intact proximal anastomosis. Bones/joints: Unremarkable. No acute fracture. Soft tissues: Unremarkable. IMPRESSION: No central pulmonary emboli and no CT evidence of right heart strain. Study is nondiagnostic for the evaluation of segmental and subsegmental pulmonary arteries due to poor and heterogeneous opacification. Electronically signed by: Julio De Los Santos On 11/29/2020 07:27:30 AM
[2020-11-29] MEDS ORDERED: SERTRALINE HCL 50 MG TAB PO ONE (07:50)
[2020-11-29] MEDS ORDERED: busPIRone 10 MG TAB PO ONE (07:50)
--- NOTE | 2020-11-29 09:37 | REPVR ---
PROCEDURE INFORMATION: Exam: MR Head Without Contrast Exam date and time: 11/29/2020 8:51 AM Age: 30 years old Clinical indication: Abnormal findings; Abnormal radiologic findings of head/skull; Not specified; Patient HX: RO subarachnoid hemorrhage, pos subarach blood on CT; Additional info: RO subarachnoid hemorrhage, posss subarach blood on CT TECHNIQUE: Imaging protocol: MR of the head without contrast. COMPARISON: CT Head without contrast 11/29/2020 6:54 AM FINDINGS: Brain: No evidence of restricted diffusion to suggest an acute infarct. No evidence of mass, midline shift, or mass effect. No evidence of hemorrhage. 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 Cerebral ventricles: Unremarkable. Bones/joints: Unremarkable. Paranasal sinuses: Mucous retention cyst in left maxillary sinus. Mild mucosal thickening of the ethmoidal air cells. Mastoid air cells: Trace fluid in left mastoid air cells. Orbital cavity: Unremarkable. Soft tissues: Unremarkable. IMPRESSION: No evidence of hemorrhage. No acute findings. 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 Mucous retention cyst in left maxillary sinus. Mild mucosal thickening of the ethmoidal air cells. Trace fluid in left mastoid air cells. Electronically signed by: Gena Estrella On 11/29/2020 09:37:17 AM
--- NOTE | 2020-11-29 09:38 | REPVR ---
PROCEDURE INFORMATION: Exam: MRA Head Without Contrast; Arteriography Exam date and time: 11/29/2020 8:44 AM Age: 30 years old Clinical indication: Abnormal findings; Abnormal CT of the head; Patient HX: RO subarachnoid bleed TECHNIQUE: Imaging protocol: Magnetic resonance angiography head without contrast. Exam focused on the arteries. Other technique: MRA is recommended to evaluate for vascular structures. COMPARISON: CT Head without contrast 11/29/2020 6:54 AM FINDINGS: ANTERIOR CIRCULATION: Right internal carotid artery: Intracranial segment is patent with no significant stenosis. No aneurysm. Right middle cerebral artery: No occlusion or significant stenosis. No aneurysm. Right anterior cerebral artery: No occlusion or significant stenosis. No aneurysm. Left internal carotid artery: Intracranial segment is patent with no significant stenosis. No aneurysm. Left middle cerebral artery: No occlusion or significant stenosis. No aneurysm. Left anterior cerebral artery: No occlusion or significant stenosis. No aneurysm. POSTERIOR CIRCULATION: Right vertebral artery: No occlusion or significant stenosis. No aneurysm. Left vertebral artery: No occlusion or significant stenosis. No aneurysm. Basilar artery: No occlusion or significant stenosis. No aneurysm. Right posterior cerebral artery: No occlusion or significant stenosis. No aneurysm. Left posterior cerebral artery: No occlusion or significant stenosis. No aneurysm. IMPRESSION: No stenosis or occlusion. PROCEDURE INFORMATION: Exam: MR Head Without Contrast Exam date and time: 11/29/2020 8:44 AM Age: 30 years old Clinical indication: Abnormal findings; Abnormal CT of the head; Patient HX: RO subarachnoid bleed TECHNIQUE: Imaging protocol: MR of the head without contrast. Other technique: MRA is recommended to evaluate for vascular structures. COMPARISON: CT Head without contrast 11/29/2020 6:54 AM FINDINGS: Brain: There is question of high signal abnormality within the left temporal lobe on the diffusion sequence which may represent recent infarct. It is possible this represents artifact. Cerebral ventricles: Normal. No ventriculomegaly. Bones/joints: Unremarkable. Paranasal sinuses: There is a retention cyst/polyp in the left maxillary sinus. Mastoid air cells: There is mild left mastoid disease. Orbital cavity: Unremarkable. Soft tissues: Unremarkable. IMPRESSION: There is question of high signal abnormality within the left temporal lobe on the diffusion sequence which may represent recent infarct. It is possible this represents artifact. Please correlate clinically. Followup imaging is recommended. Electronically signed by: Jd Cline On 11/29/2020 09:37:51 AM
--- NOTE | 2020-11-29 09:55 | REP ---
INDICATION: headache, dizziness, per [facility] neuro surg ro subarachnoid ble. COMPARISON: None. TECHNIQUE: CT contrast dose: 50 ml of intravenous Isovue 370. Axial contrast-enhanced images were obtained from the skull base to the vertex with coronal reformations using 100 cc Isovue 370 intravenous contrast material. Maximal intensity projection and multiplanar re-formation images along with 3-D rendered imaging of the arterial vasculature. FINDINGS: The [id number] and visualized vertebrobasilar system appear intact and and grossly normal. Vasculature to the bilateral hemispheres appear symmetric. There is no evidence for stenosis or occlusion. No obvious arteriovenous malformation or aneurysm detected. Remainder of the examination appears essentially normal. IMPRESSION: Normal CT angiography of the head. No evidence for stenosis or occlusion appreciated. No obvious arteriovenous malformation or aneurysm. Vasculature to the bilateral hemispheres and posterior fossa appear symmetric. <Electronically signed by Williams Leiva > 11/29/20 [id number]
[2020-11-29 12:09] LABS: RSV AMPLIFICATION NEGATIVE (NEGATIVE)
[2020-11-29] MEDS ORDERED: FLUO10CA16 PO (13:17)
[2020-11-29] MEDS ORDERED: CALC250T PO (13:17)
[2020-11-29] MEDS ORDERED: CYAN100050 PO (13:17)
[2020-11-29] MEDS ORDERED: BUSP10TA PO (13:17)
[2020-11-29] MEDS ORDERED: FLIN1CHW PO (13:17)
[2020-11-29] MEDS ORDERED: FIORICET TAB PO PRN (13:50)
--- NOTE | 2020-11-29 14:04 | HPEPDOC ---
General Date of Admission Nov 29, 2020 at 11:37 Date of Service: Nov 29, 2020 Chief Complaint The patient is a 30-year-old female admitted with a reason for visit of Abnormal Mri, Dizziness. Source: Patient History of Present Illness 30-year-old female with past medical history of morbid obesity, sleep apnea, hypertension, gestational diabetes, anxiety, tachycardia, status post gastric bypass surgery 1 year ago, presented to the ED for a racing heart. Patient up at around 1 AM feeling her heart racing. She wears smart watch which showed that her pulse rate was 188, so she called the EMS. After arriving to the ED, she complained of headache going on for 7 days and also dizziness. EKG in the ED was normal sinus rhythm. Her headache was present on both sides, throbbing in nature, about 7 x 10 in intensity. She was given Tylenol and on headache resolved. Because of her headache. She was ordered a CT head which was read as a "Subtle faint density in the left sylvian fissure most likely crossing vessel or artifact however subtle of subarachnoid blood cannot be completely excluded. Follow-up CT scan in 6-12 hours is suggested." So she had further testing with MRI and MRA of brain. The MRI brain was read by 2 radiologists from [facility] as the second radiologist did not know that the MRI was already read. The first radiologist read as type I. chiari malformation, but otherwise normal. However, the second radiologist commented possible area of acute infarct in the left temporal lobe versus artifact. The MRI was reviewed by Dr. Castle and as per him, it was negative except for that she had a Chiari malformation for which she needs to follow with neurology. Are MRA brain was normal. After this, she had a CT angiogram of the head which was negative for any aneurysm or obstruction. In view of these conflicting reports from 2 radiologists, decision was made to admit her for observation to get another MRI tomorrow to make sure that there is no acute stroke. In view of her palpitation and chest discomfort. She had a CT angiogram of the chest which was negative for any PE. Home Medications Scheduled Buspirone HCl (Buspirone HCl) 10 Mg Tablet, 10 MG PO BID, (Reported) Calcium Citrate (Calcium Citrate) 250 Mg Tablet, 250 MG PO DAILY, (Reported) Cyanocobalamin (Vitamin B-12) (Vitamin B-12) 1,000 Mcg Tablet, 1,000 MCG PO DAILY, (Reported) Fluoxetine Hcl (Fluoxetine HCl) 10 Mg Capsule, 10 MG PO DAILY, (Reported) Pediatric Multivitamin No.76 (Flintstones Complete) 1 Each Tab.chew, 1 CHW PO DAILY, (Reported) Allergies Coded Allergies: bee venom protein (honey bee) (Verified Allergy, Unknown, 11/05/18) Past Medical History Medical History Morbid obesity. 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 Family History Significant Family History: Cancer (Mother alive had brain cancer and as well as lung cancer), Hypertension (mother) Social History * Smoker: non-smoker Alcohol: Denies Drugs: denies A-FIB/CHADSVASC A-FIB History Current/History of A-Fib/PAF?: No Review of Systems Constitutional: Reports: Weight Loss; Denies: Chills, Fever, Night Sweats Eyes: Denies: Pain, Vision change ENT: Reports: Head Aches Skin: Denies: Rash, Lesions, Breakdown Pulmonary: Denies: Dyspnea, Cough Cardiovascular: Reports: Palpitations, Lt Headedness Gastrointestinal: Denies: Nausea, Vomiting, Abdominal Pain, Diarrhea Genitourinary: Denies: Dysuria, Frequency, Incontinence, Retention Physical Examination General Exam: Positive: Alert, Cooperative, No Acute Distress Eye Exam: Positive: PERRLA, Conjunctiva & lids normal, EOMI; Negative: Sclera icteric ENT Exam: Positive: Atraumatic, Mucous membr. moist/pink, Pharynx Normal Neck Exam: Positive: Supple; Negative: JVD, thyromegaly Chest Exam: Positive: Clear to auscultation, Normal air movement Heart Exam: Positive: Rate Normal, Regular Rhythm, Normal S1, Normal S2; Negative: Murmurs, Rubs Telemetry: Positive: No significant arrhythmia Abdomen Exam: Positive: Normal bowel sounds, Soft; Negative: Tenderness, Hepatospenomegaly Extremity Exam: Positive: Normal pulses; Negative: Clubbing, Cyanosis, Edema Skin Exam: Positive: Nl turgor and temperature; Negative: Breakdown, Lesion Vital Signs Vital Signs Date Time Temp Pulse Resp B/P (MAP) Pulse Ox O2 Delivery O2 Flow Rate FiO2 11/29/20 13:16 67 20 97 Room Air 11/29/20 13:15 118/63 (81) 11/29/20 12:46 98.4 Laboratory Data Labs 24H Laboratory Tests 2 11/29/20 03:05: Immature Granulocyte % (Auto) 0.4, Neutrophils (%) (Auto) 75.9H, Lymphocytes (%) (Auto) 18.7L, Monocytes (%) (Auto) 5.0, Eosinophils (%) (Auto) 0.0, Basophils (%) (Auto) 0.0, Neutrophils # (Auto) 3.6, Lymphocytes # (Auto) 0.9L, Monocytes # (Auto) 0.2, Eosinophils # (Auto) 0.0, Basophils # (Auto) 0.0, Nucleated Red Blood Cells % (auto) 0.0, Anion Gap 6L, Glomerular Filtration Rate > 60.0, Calcium Level 8.9, Total Creatine Kinase 85, Creatine Kinase MB < 1.0, Creatine Kinase MB Relative Index 1.18, Troponin I < 0.02, [id number] Natriuretic Peptide 89, Human Chorionic Gonadotropin, Qual NEGATIVE 11/29/20 10:53: Coronavirus (COVID-19)(PCR) NEGATIVE, Influenza Type A (RT-PCR) NEGATIVE, Influenza Type B (RT-PCR) NEGATIVE, Respiratory Syncytial Virus (PCR) NEGATIVE CBC/BMP Laboratory Tests 11/29/20 03:05 Assessment/Plan 30-year-old female with past medical history of morbid obesity, sleep apnea, hypertension, gestational diabetes, anxiety, tachycardia, status post gastric bypass surgery 1 year ago, presented to the ED for a racing heart. Patient up at around 1 AM feeling her heart racing. She wears smart watch which showed that her pulse rate was 188, so she called the EMS. After arriving to the ED, she complained of headache going on for 7 days and also dizziness. EKG in the ED was normal sinus rhythm. Her headache was present on both sides, throbbing in nature, about 7 x 10 in intensity. She was given Tylenol and on headache resolved. Because of her headache. She was ordered a CT head which was read as a "Subtle faint density in the left sylvian fissure most likely crossing vessel or artifact however subtle of subarachnoid blood cannot be completely excluded. Follow-up CT scan in 6-12 hours is suggested." So she had further testing with MRI and MRA of brain. The MRI brain was read by 2 radiologists from [facility] as the second radiologist did not know that the MRI was already read. The first radi ologist read as type I. chiari malformation, but otherwise normal. However, the second radiologist commented possible area of acute infarct in the left temporal lobe versus artifact. The MRI was reviewed by Dr. Castle and as per him, it was negative except for that she had a Chiari malformation for which she needs to follow with neurology. Are MRA brain was normal. After this, she had a CT angiogram of the head which was negative for any aneurysm or obstruction. In view of these conflicting reports from 2 radiologists, decision was made to admit her for observation to get another MRI tomorrow to make sure that there is no acute stroke. In view of her palpitation and chest discomfort. She had a CT angiogram of the chest which was negative for any PE. Headache Likely migraine versus due to sleep apnea Will give Fioricet Continuous pulse oximetry Tachycardia We will place the patient on telemetry Abnormal MRI My suspicion for any acute stroke is a extremely low But will get a repeat MRI tomorrow morning. In view of the different readings from 2 radiologists Anxiety sertraline and buspirone. Sleep Apnea may use own CPAP. Chiari malformation Follow up with Neurology as outpatient. Plan / VTE VTE Prophylaxis Ordered?: Yes VIKI CUEVAS MD Nov 29, 2020 14:04
[2020-11-29 15:07] VITALS: BP 132/67
[2020-11-29 16:10] VITALS: O2SAT 97
[2020-11-29] MEDS: ACETAMINOPHEN 500 MG TAB PO SCH ×2 (16:52→21:00)
[2020-11-29 21:00] VITALS: O2SAT 99
[2020-11-29] MEDS: busPIRone 10 MG TAB PO SCH (21:08)
[2020-11-29 22:00] VITALS: BP 133/71
[2020-11-29] MEDS ORDERED: RAMELTEON 8 MG TAB (ROZEREM) PO PRN (22:40)
[2020-11-29] MEDS ORDERED: diphenhydrAMINE 25MG CAP PO ONE (22:40)
[2020-11-30] MEDS ORDERED: NITROGLYCERIN 0.4 MG SUBL TABLET SL PRN (03:50)
[2020-11-30] MEDS ORDERED: ONDANSETRON 4MG/2ML VIAL IV PRN (03:50)
[2020-11-30 04:11] VITALS: BP 152/100
[2020-11-30 04:16] VITALS: BP 139/80
[2020-11-30 05:03] LABS: CK-MB VALUE MASS < 1.0 NG/ML (<3.6); CPK CREATINE PHOSPHOKINASE 48 U/L (26-192); MAGNESIUM LEVEL 1.8 MG/DL (1.8-2.4); MB/CK RELATIVE INDEX 2.08 (< OR =4); TROPONIN I < 0.02 NG/ML (< 0.10)
[2020-11-30 06:00] VITALS: BP 132/76
[2020-11-30 07:28] VITALS: O2SAT 97
[2020-11-30] MEDS ORDERED: FLUoxetine 10 MG CAP PO SCH (09:00)
[2020-11-30] MEDS: busPIRone 10 MG TAB PO SCH (09:33)
[2020-11-30] MEDS: ACETAMINOPHEN 500 MG TAB PO SCH (09:33)
--- NOTE | 2020-11-30 10:48 | IPNPDOC ---
Subjective Date Seen The patient was seen on 11/30/20. Subjective Chief Complaint/HPI Patient had an episode of racing heart early this morning. EKG was normal, monitor showed normal heart rate, cardiac enzymes was negative. She was given a dose of nitroglycerine. This am she continues to complain of headache which i explained could be from the nitroglycerine itself. She is still waiting to get the MRI of brain. If that is negative then will discharge home. Spoke with Sammy soriano. She tells me she was diagnosed with Afib by Dr Alonso and was started on a beta michelle but that had to be stopped as her pulse rate was going down too much. She also tells me that Liliana has not been herself since her bypass surgery. She has been forgetful. Like they would go to a store and then after reaching there she would ask why they were here what were they supposed to get. This as per mom is not at all her normal self. She has been slow , difficulty remembering things with constant headaches. Mom also said that she has not taken her buspirone and fluoxetine for months so will stop them on discharge. Objective Physical Examination General Exam: Positive: Alert, Cooperative, No Acute Distress Eye Exam: Positive: PERRLA, Conjunctiva & lids normal, EOMI; Negative: Sclera icteric ENT Exam: Positive: Atraumatic, Mucous membr. moist/pink, Pharynx Normal Neck Exam: Positive: Supple; Negative: JVD, thyromegaly Chest Exam: Positive: Clear to auscultation, Normal air movement Heart Exam: Positive: Rate Normal, Regular Rhythm, Normal S1, Normal S2; Negative: Murmurs, Rubs Telemetry: Positive: No significant arrhythmia Abdomen Exam: Positive: Normal bowel sounds, Soft; Negative: Tenderness, Hepatospenomegaly Extremity Exam: Positive: Normal pulses; Negative: Clubbing, Cyanosis, Edema Skin Exam: Positive: Nl turgor and temperature; Negative: Breakdown, Lesion Assessment /Plan Assessment 30-year-old female with past medical history of morbid obesity, sleep apnea, hypertension, gestational diabetes, anxiety, tachycardia, status post gastric bypass surgery 1 year ago, presented to the ED for a racing heart. Patient up at around 1 AM feeling her heart racing. She wears smart watch which showed that her pulse rate was 188, so she called the EMS. After arriving to the ED, she complained of headache going on for 7 days and also dizziness. EKG in the ED was normal sinus rhythm. Her headache was present on both sides, throbbing in nature, about 7 x 10 in intensity. She was given Tylenol and on headache resolved. Because of her headache. She was ordered a CT head which was read as a "Subtle faint density in the left sylvian fissure most likely crossing vessel or artifact however subtle of subarachnoid blood cannot be completely excluded. Follow-up CT scan in 6-12 hours is suggested." So she had further testing with MRI and MRA of brain. The MRI brain was read by [address] [facility] as the second radiologist did not know that the MRI was already read. The first radiologist read as type I. chiari malformation, but otherwise normal. However, the second radiologist commented possible area of acute infarct in the left temporal lobe versus artifact. The MRI was reviewed by Dr. Castle and as per him, it was negative except for that she had a Chiari malformation for which she needs to follow with neurology. Are MRA brain was normal. After this, she had a CT angiogram of the head which was negative for any aneurysm or obstruction. In view of these conflicting reports from 2 radiologists, decision was made to admit her for observation to get another MRI tomorrow to make sure that there is no acute stroke. In view of her palpitation and chest discomfort. She had a CT angiogram of the chest which was negative for any PE. Headache May be migraine Continuous pulse oximetry no hypoxia noted MRI brain on 11/30/20 is negative. MRA brain on 11/29/20 no abnormality in cerebral circulation. Racing heart/Tachycardia/Afib No events on monitor, no tachycardia noted. several ekgs this admission with sinus rhythm. I did see an EKG from 2018 which had sinus rhythm with short CT interval. 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 Memory issues known fdc complication after gastric bypass surgery are multiple vitamin def, Zn deficiency and hyperammonemia which can cause metabolic encephalopathy will check B12, B1, folate, zn and ammonia levels prior to discharge. MRI normal except for chiari malformation. MRI brain: 5.8 mm cerebellar tonsillar ectopia may represent Chiari 1 malformation. 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 Anxiety Used to be on sertraline and buspirone But she has not been taking these for many months as per mom so will dc them. H/o Sleep Apnea never went for CPAP fitting. Chiari malformation Follow up with Neurology as outpatient. Disposition: DC home follow up with PMD, Dr Alonso and Dr Castle. Plan/VTE VTE Prophylaxis Ordered?: Yes VS, I&O, 24H, Fishbone Vital Signs/I&O Vital Signs Date Time Temp Pulse Resp B/P (MAP) Pulse Ox O2 Delivery O2 Flow Rate FiO2 11/30/20 07:28 97 Room Air 11/30/20 07:26 18 11/30/20 06:00 97.4 60 132/76 (94) I&O- Last 24 Hours up to 6 AM 11/30/20 06:00 Intake Total 2260 ml Output Total 0 ml Balance 2260 ml Laboratory Data 24H LABS Laboratory Tests 2 11/29/20 10:53: Coronavirus (COVID-19)(PCR) NEGATIVE, Influenza Type A (RT-PCR) NEGATIVE, Influenza Type B (RT-PCR) NEGATIVE, Respiratory Syncytial Virus (PCR) NEGATIVE 11/30/20 04:24: Magnesium Level 1.8, Total Creatine Kinase 48, Creatine Kinase MB < 1.0, Crea vikram Kinase MB Relative Index 2.08, Troponin I < 0.02 VIKI CUEVAS MD Nov 30, 2020 10:48
--- NOTE | 2020-11-30 13:15 | REPVR ---
PROCEDURE INFORMATION: Exam: MR Head Without Contrast Exam date and time: 11/30/2020 12:56 PM Age: 30 years old Clinical indication: Pain. Headache.: Abnormal mri TECHNIQUE: Imaging protocol: MR of the head without contrast. COMPARISON: 1. MRI-Brain without Contrast 11/29/2020 8:[address] Head without contrast 11/29/2020 6:54:20 AM FINDINGS: Brain: Examination of the brain demonstrates normal morphology and signal intensity.No acute infarction, masses, midline shift or acute hemorrhage is seen. No acute intracranial abnormality is identified.There is no abnormal diffusion weighted signal intensity to suggest an acute ischemic event.The cortical branham / white matter interfaces are preserved throughout the brain.Intracranial flow voids are well maintained. Examination again reveals low-lying peg shaped cerebellar tonsils approximately 6 mm below the plane of the foramen magnum which may represent Chiari 1 malformation. There is no evidence for syringomyelia in the visualized cervical spinal cord. Cerebral ventricles: The ventricular system is not dilated and is appropriate for the patient's age. Bones/joints: Bone marrow signal intensity of the visualized osseous structures is unremarkable. No acute fracture or dislocation is seen.. Paranasal sinuses: Stable retention cyst in the left maxillary sinus. Mastoid air cells: Normal as visualized. No mastoid effusion. Orbital cavity: Unremarkable. Soft tissues: Unremarkable. IMPRESSION: 1. No acute infarction, masses or hemorrhage is seen. No acute intracranial abnormality is identified.There has been no adverse interval change since the previous study. 2. The restricted diffusion noted in the left temporal lobe on the previous study is felt to be artifactual. Electronically signed by: Gilbert Alvarez On 11/30/2020 13:15:16 PM
--- NOTE | 2020-11-30 20:58 | ECGEPIP ---
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
== END 2020-11-30 14:58 | disposition home or self-care (01) ==
LOC: M ED 02:01 → M ED INP 11:37 → ENRESERV 12:18 → M MSPAV 15:05
PROVIDERS: ADMIT Internal Medicine Nephrology; ATTEND Internal Medicine Nephrology
DX: R00.0 Tachycardia, unspecified (principal); R42 Dizziness and giddiness; R51.9 Headache, unspecified; R94.02 Abnormal brain scan; Q07.00 Arnold-Chiari syndrome without spina bifida or hydrocephalus; I10 Essential (primary) hypertension; F41.9 Anxiety disorder, unspecified; F32.9 Major depressive disorder, single episode, unspecified; Z98.84 Bariatric surgery status; E66.01 Morbid (severe) obesity due to excess calories; G47.33 Obstructive sleep apnea (adult) (pediatric); Z91.030 Bee allergy status; Z79.899 Other long term (current) drug therapy
CPT/HCPCS: 36415; 70450; 70496; 70544; 70551; 71045; 71275; 80048; 82140; 82550; 82553; 82607; 82746; 83735; 83880; 84425; 84484; 84630; 84703; 85025; 87631; 93005; 93041; 94760; 96374; 99285; G0378; Q9967

== ENCOUNTER 2021-07-15 13:55 | Emergency (ER) | payer MEDICARE, MEDICAID ==
[~2021-07-15] VITALS: Ht 167.6 cm; Wt 86.4 kg
[~2021-07-15 13:55] MED LIST changes: +BUSP10TA PO; +CALC250T PO; +CYAN100050 PO; +FLIN1CHW PO; +FLUO10CA18 PO
[2021-07-15 14:05] VITALS: BP 121/58
[2021-07-15] MEDS ORDERED: FLUO10CA18 (14:26)
== END 2021-07-15 15:34 | disposition left against medical advice (07) ==
LOC: M ED 13:55
DX: Z53.21 Procedure and treatment not carried out due to patient leaving prior to being seen by health care provider (principal)

== ENCOUNTER 2021-08-08 21:46 | Emergency (ER) | payer MEDICARE, MEDICAID ==
[~2021-08-08] VITALS: Ht 167.6 cm; Wt 85.9 kg
[~2021-08-08 21:46] MED LIST changes: +FLUO10CA18
[2021-08-08 23:02] LABS: BASO % 0.4 % (0.0-1.0); EOS # 0.1 10^3/uL (0.0-0.5); EOS % 1.4 % (0.0-3.0); HEMATOCRIT 33.7 % (36.0-47.0); HEMOGLOBIN 11.2 g/dl (12.0-15.5); LYMPH # 2.6 10^3/uL (1.5-5.0); MEAN CORPUSCULAR HEMOGLOBIN 30.6 pg (27.0-33.0); MEAN CORPUSCULAR HGB CONC 33.2 g/dl (32.0-36.5); MEAN CORPUSCULAR VOLUME 92.1 fl (80.0-96.0); MONO # 0.4 10^3/uL (0.0-0.8); NEUTROPHILS # 2.6 10^3/uL (1.5-8.5); PLATELET COUNT, AUTOMATED 202 10^3/uL (150-450); RED BLOOD COUNT 3.66 10^6/uL (4.00-5.40); WHITE BLOOD COUNT 5.7 10^3/uL (4.0-10.0)
[2021-08-08 23:24] LABS: BLOOD UREA NITROGEN 8 MG/DL (7-18); CARBON DIOXIDE LEVEL 20 MEQ/L (21-32); CHLORIDE LEVEL 115 MEQ/L (98-107); CREATININE FOR GFR 0.64 MG/DL (0.55-1.30); GLOMERULAR FILTRATION RATE > 60.0 (>60); GLUCOSE, FASTING 84 MG/DL (70-100); MAGNESIUM LEVEL 1.9 MG/DL (1.8-2.4); POTASSIUM SERUM 3.9 MEQ/L (3.5-5.1); SODIUM LEVEL 143 MEQ/L (136-145)
[2021-08-09 00:30] VITALS: BP 133/63
== END 2021-08-09 00:32 | disposition home or self-care (01) ==
LOC: M ED 21:46
DX: R07.9 Chest pain, unspecified (principal); F17.200 Nicotine dependence, unspecified, uncomplicated; Z86.79 Personal history of other diseases of the circulatory system; Z91.030 Bee allergy status; Z98.84 Bariatric surgery status; Z79.899 Other long term (current) drug therapy

== ENCOUNTER 2021-08-12 12:36 | Emergency (ER) | payer MEDICARE, MEDICAID ==
[~2021-08-12] VITALS: Ht 170.2 cm; Wt 86.8 kg
[2021-08-12 13:37] LABS: BASO % 0.5 % (0.0-1.0); EOS % 0.9 % (0.0-3.0); HEMATOCRIT 33.6 % (36.0-47.0); HEMOGLOBIN 11.2 g/dl (12.0-15.5); LYMPH # 1.5 10^3/uL (1.5-5.0); MEAN CORPUSCULAR HEMOGLOBIN 31.1 pg (27.0-33.0); MEAN CORPUSCULAR HGB CONC 33.3 g/dl (32.0-36.5); MEAN CORPUSCULAR VOLUME 93.3 fl (80.0-96.0); MONO # 0.3 10^3/uL (0.0-0.8); MONO % 6.2 % (2.0-8.0); NEUTROPHILS # 2.5 10^3/uL (1.5-8.5); NEUTROPHILS % 57.2 % (36.0-66.0); PLATELET COUNT, AUTOMATED 193 10^3/uL (150-450); WHITE BLOOD COUNT 4.3 10^3/uL (4.0-10.0)
[2021-08-12 14:05] LABS: CK-MB VALUE MASS < 1.0 NG/ML (<3.6); CPK CREATINE PHOSPHOKINASE 59 U/L (26-192); MB/CK RELATIVE INDEX 1.69 (< OR =4)
[2021-08-12 14:10] LABS: ALBUMIN 3.8 GM/DL (3.2-5.2); ALT/SGPT 36 U/L (12-78); BILIRUBIN,DIRECT 0.1 MG/DL (0.0-0.2); BILIRUBIN,TOTAL 0.3 MG/DL (0.2-1.0); BLOOD UREA NITROGEN 8 MG/DL (7-18); CALCIUM LEVEL 8.7 MG/DL (8.5-10.1); CARBON DIOXIDE LEVEL 25 MEQ/L (21-32); CHLORIDE LEVEL 112 MEQ/L (98-107); GLOMERULAR FILTRATION RATE > 60.0 (>60); GLUCOSE, FASTING 87 MG/DL (70-100); LIPASE 88 U/L (73-393); SODIUM LEVEL 145 MEQ/L (136-145); THYROID STIMULATING HORMONE 0.533 uIU/ML (0.358-3.740); TOTAL PROTEIN 6.6 GM/DL (6.4-8.2)
[2021-08-12 15:06] VITALS: BP 129/74
== END 2021-08-12 15:26 | disposition home or self-care (01) ==
LOC: M ED 12:36 → EDBD 12:36 → M ED 15:26
DX: R00.2 Palpitations (principal); I48.91 Unspecified atrial fibrillation; R94.31 Abnormal electrocardiogram [ECG] [EKG]; Z91.030 Bee allergy status; Z98.84 Bariatric surgery status; Z82.49 Family history of ischemic heart disease and other diseases of the circulatory system

== ENCOUNTER 2021-08-22 21:51 | Emergency (ER) | payer MEDICARE, MEDICAID ==
[~2021-08-22] VITALS: Ht 167.6 cm; Wt 86.4 kg
[~2021-08-22 21:51] MED LIST changes: +METO1TAB32 PO
[2021-08-22 21:54] VITALS: BP 126/69
[2021-08-22] MEDS ORDERED: NITR-67 PO (22:00)
[2021-08-22 23:41] LABS: BILIRUBIN, URINE MANUAL NEGATIVE (NEGATIVE); GLUCOSE, URINE (UA) MANUAL NEGATIVE (NEGATIVE); KETONE, URINE MANUAL NEGATIVE (NEGATIVE); UROBILINOGEN, URINE MANUAL NORMAL (NORMAL)
[2021-08-22] MEDS ORDERED: ONDANSETRON 4 MG ORAL DISINTEGRATING TAB PO ONE (23:45)
[2021-08-22 23:49] LABS: RBC, URINE 0-1 /hpf (0-3)
[2021-08-22 23:50] LABS: AMORPHOUS SEDIMENT, URINE SMALL AMOUNT (NEGATIVE); BACTERIA, URINE NONE SEEN; HYALINE CAST, URINE NONE SEEN /lpf (0-1); MUCUS, URINE LARGE AMOUNT (NEGATIVE); SQUAMOUS EPITHELIAL CELL URINE MOD AMOUNT /hpf (SMALL AMT)
[2021-08-23] MEDS ORDERED: ONDA4TAB6 PO (00:23)
== END 2021-08-23 00:45 | disposition home or self-care (01) ==
LOC: M ED 21:51
DX: N39.0 Urinary tract infection, site not specified (principal); F41.8 Other specified anxiety disorders; Z86.79 Personal history of other diseases of the circulatory system; Z87.19 Personal history of other diseases of the digestive system; Z91.030 Bee allergy status; Z98.84 Bariatric surgery status; Z79.899 Other long term (current) drug therapy
CPT/HCPCS: 81000; 87086; 99283; Q0162

== ENCOUNTER 2021-08-26 08:19 | Emergency (ER) | payer MEDICARE, MEDICAID ==
[~2021-08-26 08:19] MED LIST changes: +NITR-67 PO; +ONDA4TAB6 PO
[2021-08-26 08:29] VITALS: BP 131/58
[2021-08-26] MEDS ORDERED: OMEPRAZOLE 20MG CAP PO ONE (08:45)
== END 2021-08-26 09:23 | disposition home or self-care (01) ==
LOC: EDBD 08:19 → M ED 08:19
DX: M25.512 Pain in left shoulder (principal); K21.9 Gastro-esophageal reflux disease without esophagitis; K30 Functional dyspepsia; R00.1 Bradycardia, unspecified; Z98.84 Bariatric surgery status; Z79.899 Other long term (current) drug therapy; Z91.030 Bee allergy status

== ENCOUNTER 2021-08-29 20:41 | Emergency (ER) | payer MEDICARE, MEDICAID ==
[~2021-08-29] VITALS: Ht 170.2 cm; Wt 87.1 kg
[2021-08-29 20:58] VITALS: BP 140/81
[2021-08-30] MEDS ORDERED: NS 1,000 ML IV ONE (00:10)
[2021-08-30] MEDS ORDERED: KETOROLAC 30 MG/ML 1ML VIAL IV ONE (00:10)
[2021-08-30 00:46] LABS: BASO % 0.4 % (0.0-1.0); EOS # 0.1 10^3/uL (0.0-0.5); EOS % 1.1 % (0.0-3.0); HEMATOCRIT 35.6 % (36.0-47.0); HEMOGLOBIN 11.9 g/dl (12.0-15.5); LYMPH # 2.5 10^3/uL (1.5-5.0); LYMPH % 46.2 % (24.0-44.0); MEAN CORPUSCULAR HGB CONC 33.4 g/dl (32.0-36.5); MEAN CORPUSCULAR VOLUME 92.7 fl (80.0-96.0); MONO # 0.4 10^3/uL (0.0-0.8); NEUTROPHILS # 2.4 10^3/uL (1.5-8.5); NEUTROPHILS % 44.7 % (36.0-66.0); PLATELET COUNT, AUTOMATED 185 10^3/uL (150-450); RED BLOOD COUNT 3.84 10^6/uL (4.00-5.40); WHITE BLOOD COUNT 5.5 10^3/uL (4.0-10.0)
[2021-08-30 01:11] LABS: ALBUMIN 3.8 GM/DL (3.2-5.2); ALT/SGPT 28 U/L (12-78); BILIRUBIN,TOTAL 0.3 MG/DL (0.2-1.0); BLOOD UREA NITROGEN 13 MG/DL (7-18); CALCIUM LEVEL 8.8 MG/DL (8.5-10.1); CARBON DIOXIDE LEVEL 26 MEQ/L (21-32); CHLORIDE LEVEL 109 MEQ/L (98-107); CREATININE FOR GFR 0.58 MG/DL (0.55-1.30); GLOMERULAR FILTRATION RATE > 60.0 (>60); GLUCOSE, FASTING 79 MG/DL (70-100); LIPASE 110 U/L (73-393); SODIUM LEVEL 142 MEQ/L (136-145); TOTAL PROTEIN 6.7 GM/DL (6.4-8.2)
[2021-08-30 01:13] LABS: CK-MB VALUE MASS < 1.0 NG/ML (<3.6); CPK CREATINE PHOSPHOKINASE 65 U/L (26-192); MB/CK RELATIVE INDEX 1.54 (< OR =4)
[2021-08-30] MEDS ORDERED: LevoFLOXacin 750 MG TABLET PO ONE (01:35)
[2021-08-30] MEDS ORDERED: LEVO750T13 PO (01:36)
== END 2021-08-30 02:00 | disposition home or self-care (01) ==
LOC: M ED 20:41
DX: R10.31 Right lower quadrant pain (principal); N39.0 Urinary tract infection, site not specified; N10 Acute pyelonephritis; R00.1 Bradycardia, unspecified; Z91.030 Bee allergy status
CPT/HCPCS: 74176; 80053; 81001; 82550; 82553; 83690; 84484; 85025; 87086; 93005; 96361; 96374; 99284; J1885

== ENCOUNTER 2021-09-06 17:19 | Emergency (ER) | payer MEDICARE, MEDICAID ==
[~2021-09-06 17:19] MED LIST changes: +LEVO750T13 PO
[2021-09-06 18:16] VITALS: BP 122/64
== END 2021-09-06 20:19 | disposition left against medical advice (07) ==
LOC: M ED 17:19
DX: Z53.21 Procedure and treatment not carried out due to patient leaving prior to being seen by health care provider (principal)

== ENCOUNTER 2021-09-12 22:54 | Emergency (ER) | payer MEDICARE, MEDICAID ==
[~2021-09-12] VITALS: Ht 167.6 cm; Wt 86.4 kg
[2021-09-12 22:54] VITALS: BP 118/56
== END 2021-09-13 00:40 | disposition left against medical advice (07) ==
LOC: M ED 22:54
DX: Z53.21 Procedure and treatment not carried out due to patient leaving prior to being seen by health care provider (principal)

== ENCOUNTER 2021-09-23 22:06 | Emergency (ER) | payer MEDICARE, MEDICAID ==
[~2021-09-23] VITALS: Ht 167.6 cm; Wt 86.8 kg
[2021-09-23 22:13] VITALS: BP 124/63
[2021-09-23] MEDS ORDERED: AMOX875T2 PO (22:17)
== END 2021-09-23 23:25 | disposition left against medical advice (07) ==
LOC: EDBD 22:06 → M ED 22:06
DX: Z53.21 Procedure and treatment not carried out due to patient leaving prior to being seen by health care provider (principal)

== ENCOUNTER → 2021-09-30 | Outpatient (REF) | payer MEDICARE, MEDICAID ==
[~2021-09-30] MED LIST changes: +AMOX875T2 PO
[2021-09-30 17:30] LABS: APPEARANCE, URINE CLEAR (CLEAR); BACTERIA, URINE AUTO NEGATIVE (NEGATIVE); BILIRUBIN, URINE AUTO NEGATIVE (NEGATIVE); BLOOD, URINE BLOOD NEGATIVE (NEGATIVE); COLOR, URINE YELLOW (YELLOW); GLUCOSE, URINE (UA) AUTO NEGATIVE (NEGATIVE); KETONE, URINE AUTO TRACE mg/dL (NEGATIVE); LEUKOCYTE ESTERASE, URINE AUTO NEGATIVE (NEGATIVE); MUCUS, URINE SMALL (NEGATIVE); NITRITE, URINE AUTO NEGATIVE (NEGATIVE); PROTEIN, URINE AUTO NEGATIVE (NEGATIVE); RBC, URINE AUTO 3 /HPF (0-3); SPECIFIC GRAVITY URINE AUTO 1.017 (1.002-1.035); SQUAMOUS EPITHELIAL CELL UR AU 1 /HPF (0-6); WBC, URINE AUTO 0 /HPF (0-3)
== END ==
LOC: M SMT 16:42
PROVIDERS: ATTEND Nurse Practitioner Women's Health
DX: M54.50 Low back pain, unspecified (principal); Z79.899 Other long term (current) drug therapy

== ENCOUNTER 2022-04-11 17:23 | Emergency (ER) | payer MEDICARE, MEDICAID ==
[~2022-04-11] VITALS: Ht 167.6 cm; Wt 86.4 kg
[~2022-04-11 17:23] MED LIST changes: +LEVO1TAB40 PO; -LEVO750T13 PO
[2022-04-11 17:27] VITALS: BP 148/70
[2022-04-11] MEDS ORDERED: PRENMIS3 PO (17:40)
== END 2022-04-11 19:25 | disposition left against medical advice (07) ==
LOC: M ED 17:23
DX: Z53.21 Procedure and treatment not carried out due to patient leaving prior to being seen by health care provider (principal)

== ENCOUNTER → 2022-05-26 | Outpatient (CLI) | payer MEDICARE, MEDICAID ==
[~2022-05-26] MED LIST changes: +PRENMIS3 PO
[2022-05-26 13:52] LABS: HEMATOCRIT 35.3 % (36.0-47.0); HEMOGLOBIN 11.8 g/dl (12.0-15.5); MEAN CORPUSCULAR HEMOGLOBIN 31.1 pg (27.0-33.0); MEAN CORPUSCULAR HGB CONC 33.4 g/dl (32.0-36.5); MEAN CORPUSCULAR VOLUME 93.1 fl (80.0-96.0); PLATELET COUNT, AUTOMATED 197 10^3/uL (150-450); RED BLOOD COUNT 3.79 10^6/uL (4.00-5.40); WHITE BLOOD COUNT 4.2 10^3/uL (4.0-10.0)
[2022-05-26 15:25] LABS: HIV 1&2 SCREEN CENTAUR NEGATIVE (NEGATIVE)
[2022-05-26 15:33] LABS: HEPATITIS C VIRUS ABY INDEX 0.1 INDEX (<0.8)
[2022-05-26 16:31] LABS: GC DNA AMPLIFICATION NEGATIVE (NEGATIVE)
== END ==
LOC: M PLALAB 10:22
PROVIDERS: ATTEND Specialist
DX: Z34.81 Encounter for supervision of other normal pregnancy, first trimester (principal)

== ENCOUNTER → 2022-06-30 | Outpatient (REF) | payer MEDICARE, MEDICAID ==
[2022-06-30 14:46] LABS: APPEARANCE, URINE MANUAL CLEAR (CLEAR); COLOR, URINE MANUAL YELLOW (YELLOW)
[2022-06-30 14:47] LABS: BILIRUBIN, URINE MANUAL NEGATIVE (NEGATIVE); BLOOD URINE MANUAL NEGATIVE (NEGATIVE); GLUCOSE, URINE (UA) MANUAL NEGATIVE (NEGATIVE); KETONE, URINE MANUAL NEGATIVE (NEGATIVE); NITRITE, URINE MANUAL NEGATIVE (NEGATIVE); PH,URINE MAN 6.5 UNITS (5.0 - 7.0); PROTEIN, URINE MANUAL NEGATIVE (NEGATIVE)
[2022-06-30 14:48] LABS: LEUKOCYTE ESTERASE, URINE MAN TRACE (NEGATIVE); UROBILINOGEN, URINE MANUAL 1 MG mg/dl (NORMAL)
[2022-06-30 15:01] LABS: SQUAMOUS EPITHELIAL CELL URINE SMALL AMOUNT /hpf (SMALL AMT)
[2022-06-30 15:02] LABS: BACTERIA, URINE SMALL AMOUNT; HYALINE CAST, URINE NONE SEEN /lpf (0-1); RBC, URINE 0-1 /hpf (0-3)
[2022-06-30 15:03] LABS: AMORPHOUS SEDIMENT, URINE SMALL AMOUNT (NEGATIVE); MUCUS, URINE SMALL AMOUNT (NEGATIVE)
== END ==
LOC: M PLALAB 11:39
PROVIDERS: ATTEND Advanced Practice Midwife
DX: Z34.82 Encounter for supervision of other normal pregnancy, second trimester (principal)

== ENCOUNTER → 2022-07-26 | Outpatient (CLI) | payer MEDICARE, MEDICAID | LOC: M WHC 09:37 | PROVIDERS: ATTEND Advanced Practice Midwife | DX: Z34.82 Encounter for supervision of other normal pregnancy, second trimester (principal); Z3A.19 19 weeks gestation of pregnancy ==

== ENCOUNTER → 2022-08-29 | Outpatient (CLI) | payer MEDICARE, MEDICAID | LOC: M WHC 08:36 | PROVIDERS: ATTEND Obstetrics & Gynecology | DX: O99.842 Bariatric surgery status complicating pregnancy, second trimester (principal); Z3A.24 24 weeks gestation of pregnancy ==

== ENCOUNTER → 2022-09-21 | Outpatient (CLI) | payer MEDICARE, MEDICAID ==
[2022-09-21 13:59] LABS: HEMOGLOBIN A1c 5.1 % (4.0-6.0)
[2022-09-21 14:10] LABS: FOLATE 8.73 NG/ML (>5.4); TOTAL 25(OH) VITAMIN D 17.4 NG/ML (20.0-100.0)
== END ==
LOC: M PLALAB 11:14
PROVIDERS: ATTEND Advanced Practice Midwife
DX: O99.842 Bariatric surgery status complicating pregnancy, second trimester (principal); Z79.899 Other long term (current) drug therapy

== ENCOUNTER 2022-09-26 13:40 | Outpatient (CLI) | payer MEDICARE, MEDICAID ==
[~2022-09-26] VITALS: Ht 167.6 cm; Wt 89.7 kg
[2022-09-26 14:04] VITALS: BP 126/70
[2022-09-26] MEDS ORDERED: HOME MED LIST COMPLETE! XX SCH (14:15)
== END 2022-09-26 15:00 | disposition home or self-care (01) ==
LOC: M LDO 13:40
PROVIDERS: ATTEND Advanced Practice Midwife
DX: O36.8139 Decreased fetal movements, third trimester, other fetus (principal); O99.843 Bariatric surgery status complicating pregnancy, third trimester; O24.419 Gestational diabetes mellitus in pregnancy, unspecified control; Z3A.28 28 weeks gestation of pregnancy
CPT/HCPCS: 59025; 87070; 87077; G0463

== ENCOUNTER → 2022-10-18 | Outpatient (CLI) | payer MEDICARE, MEDICAID | LOC: M WHC 13:25 | PROVIDERS: ATTEND Advanced Practice Midwife | DX: O99.842 Bariatric surgery status complicating pregnancy, second trimester (principal); Z3A.31 31 weeks gestation of pregnancy ==

== ENCOUNTER → 2022-10-19 | Outpatient (CLI) | payer MEDICARE, MEDICAID ==
[2022-10-19 13:41] LABS: HEMATOCRIT 30.3 % (36.0-47.0); HEMOGLOBIN 9.8 g/dl (12.0-15.5); MEAN CORPUSCULAR HEMOGLOBIN 30.5 pg (27.0-33.0); MEAN CORPUSCULAR HGB CONC 32.3 g/dl (32.0-36.5); MEAN CORPUSCULAR VOLUME 94.4 fl (80.0-96.0); PLATELET COUNT, AUTOMATED 224 10^3/uL (150-450); RED BLOOD COUNT 3.21 10^6/uL (4.00-5.40); WHITE BLOOD COUNT 6.7 10^3/uL (4.0-10.0)
== END ==
LOC: M PLALAB 11:45
PROVIDERS: ATTEND Obstetrics & Gynecology
DX: O99.842 Bariatric surgery status complicating pregnancy, second trimester (principal); Z3A.00 Weeks of gestation of pregnancy not specified

== ENCOUNTER → 2022-11-18 | Outpatient (REF) | payer MEDICARE, MEDICAID | LOC: M PLALAB 07:30 | PROVIDERS: ATTEND Advanced Practice Midwife | DX: Z36.85 Encounter for antenatal screening for Streptococcus B (principal); O99.843 Bariatric surgery status complicating pregnancy, third trimester; Z3A.00 Weeks of gestation of pregnancy not specified ==

== ENCOUNTER → 2022-11-24 | Outpatient (CLI) | payer MEDICARE, MEDICAID | LOC: M WHC 12:33 | PROVIDERS: ATTEND Advanced Practice Midwife | DX: O99.842 Bariatric surgery status complicating pregnancy, second trimester (principal); Z3A.37 37 weeks gestation of pregnancy ==

== ENCOUNTER 2022-12-02 19:54 | Emergency (ER) | payer MEDICARE, MEDICAID ==
[~2022-12-02] VITALS: Ht 167.6 cm; Wt 90.5 kg
[2022-12-02 20:07] VITALS: TEMP 98.7
[2022-12-02 20:43] LABS: BASO % 0.6 % (0.0-1.0); EOS # 0.1 10^3/uL (0.0-0.5); EOS % 1.8 % (0.0-3.0); HEMATOCRIT 28.5 % (36.0-47.0); LYMPH # 1.9 10^3/uL (1.5-5.0); LYMPH % 37.8 % (24.0-44.0); MEAN CORPUSCULAR HEMOGLOBIN 27.8 pg (27.0-33.0); MEAN CORPUSCULAR HGB CONC 31.6 g/dl (32.0-36.5); MONO # 0.4 10^3/uL (0.0-0.8); MONO % 8.3 % (2.0-8.0); NEUTROPHILS # 2.6 10^3/uL (1.5-8.5); NEUTROPHILS % 51.3 % (36.0-66.0); PLATELET COUNT, AUTOMATED 286 10^3/uL (150-450); RED BLOOD COUNT 3.24 10^6/uL (4.00-5.40)
[2022-12-02] MEDS ORDERED: NS 1,000 ML IV SCH (20:55)
[2022-12-02] MEDS ORDERED: METOCLOPRAMIDE INJ 10MG/2ML VIAL IV ONE (20:55)
[2022-12-02 21:08] LABS: BLOOD UREA NITROGEN 10 MG/DL (9-23); CARBON DIOXIDE LEVEL 26 MMOL/L (20-31); CHLORIDE LEVEL 109 MMOL/L (98-107); CREATININE FOR GFR 0.59 MG/DL (0.55-1.30); GLOMERULAR FILTRATION RATE > 60.0 (>60); GLUCOSE, FASTING 85 MG/DL (60-100); POTASSIUM SERUM 3.9 MMOL/L (3.5-5.1); SODIUM LEVEL 141 MMOL/L (136-145)
[2022-12-02 21:34] LABS: CREATININE,RANDOM URINE 29.4 MG/DL
[2022-12-02 21:37] LABS: TOTAL PROTEIN,RANDOM URINE < 6.0 MG/DL (0.0-14.0)
[2022-12-02] MEDS ORDERED: ISOVUE-370 76% 100ML VIAL As Ordered ONE (22:16)
[2022-12-02 22:19] LABS: ALBUMIN 2.8 G/DL (3.2-5.2); ALKALINE PHOSPHATASE 156 U/L (46-116); ALT/SGPT 18 U/L (7.0-40); AST/SGOT 17 U/L (<34); BILIRUBIN,DIRECT < 0.1 MG/DL (<0.4); BILIRUBIN,TOTAL < 0.2 MG/DL (0.3-1.2); TOTAL PROTEIN 6.1 G/DL (5.7-8.2)
[2022-12-02 22:30] VITALS: BP 134/80; O2SAT 97
== END 2022-12-03 00:14 | disposition home or self-care (01) ==
LOC: M ED 19:54 → EDBD 19:54 → M ED 12-03 00:14
DX: R51.9 Headache, unspecified (principal); Z86.79 Personal history of other diseases of the circulatory system; Z98.84 Bariatric surgery status; Z91.030 Bee allergy status
CPT/HCPCS: 70450; 70496; 70498; 70544; 70551; 71045; 80048; 80076; 82570; 84156; 85025; 93005; 93041; 94760; 96361; 96374; 99285; J2765; Q9967

== ENCOUNTER 2023-02-18 20:40 | Emergency (ER) | payer MEDICARE, MEDICAID ==
[~2023-02-18] VITALS: Ht 167.6 cm; Wt 87.8 kg
[~2023-02-18 20:40] MED LIST changes: +CYAN-1 PO; -CYAN100050 PO
[2023-02-18 20:41] VITALS: BP 162/88; TEMP 98.6; O2SAT 99
== END 2023-02-18 22:25 | disposition left against medical advice (07) ==
LOC: M ED 20:40
DX: Z53.21 Procedure and treatment not carried out due to patient leaving prior to being seen by health care provider (principal)

== ENCOUNTER 2023-02-19 04:00 | Emergency (ER) | payer MEDICARE, MEDICAID ==
[~2023-02-19] VITALS: Ht 167.6 cm; Wt 83.2 kg
[2023-02-19 04:36] LABS: BASO % 0.5 % (0.0-1.0); EOS # 0.1 10^3/uL (0.0-0.5); EOS % 1.6 % (0.0-3.0); HEMATOCRIT 29.9 % (36.0-47.0); HEMOGLOBIN 9.5 g/dl (12.0-15.5); LYMPH # 1.8 10^3/uL (1.5-5.0); LYMPH % 48.3 % (24.0-44.0); MEAN CORPUSCULAR HEMOGLOBIN 26.9 pg (27.0-33.0); MEAN CORPUSCULAR HGB CONC 31.8 g/dl (32.0-36.5); MEAN CORPUSCULAR VOLUME 84.7 fl (80.0-96.0); MONO # 0.3 10^3/uL (0.0-0.8); MONO % 8.7 % (2.0-8.0); NEUTROPHILS # 1.6 10^3/uL (1.5-8.5); NEUTROPHILS % 40.9 % (36.0-66.0); PLATELET COUNT, AUTOMATED 243 10^3/uL (150-450); RED BLOOD COUNT 3.53 10^6/uL (4.00-5.40); WHITE BLOOD COUNT 3.8 10^3/uL (4.0-10.0)
[2023-02-19 05:05] LABS: CK-MB VALUE MASS < 1.0 NG/ML (<3.6)
[2023-02-19 05:06] LABS: BLOOD UREA NITROGEN 10 MG/DL (9-23); CALCIUM LEVEL 8.8 MG/DL (8.5-10.1); CARBON DIOXIDE LEVEL 25 MMOL/L (20-31); CHLORIDE LEVEL 107 MMOL/L (98-107); CPK CREATINE PHOSPHOKINASE 91 U/L (34-145); GLOMERULAR FILTRATION RATE > 60.0 (>60); GLUCOSE, FASTING 93 MG/DL (60-100); MB/CK RELATIVE INDEX 1.09 (< OR =4); POTASSIUM SERUM 3.7 MMOL/L (3.5-5.1); SODIUM LEVEL 142 MMOL/L (136-145)
[2023-02-19 06:29] LABS: CK-MB VALUE MASS < 1.0 NG/ML (<3.6)
[2023-02-19 06:31] LABS: CPK CREATINE PHOSPHOKINASE 91 U/L (34-145); MB/CK RELATIVE INDEX 1.09 (< OR =4)
[2023-02-19 07:31] VITALS: BP 116/60; TEMP 96.6; O2SAT 99
== END 2023-02-19 14:05 | disposition left against medical advice (07) ==
LOC: EDBD 04:00 → M ED 04:00
DX: Z53.21 Procedure and treatment not carried out due to patient leaving prior to being seen by health care provider (principal)

== ENCOUNTER 2023-09-30 02:18 | Emergency (ER) | payer MEDICARE, MEDICAID ==
[~2023-09-30] VITALS: Ht 167.6 cm; Wt 93.2 kg
[~2023-09-30 02:18] MED LIST changes: +OMEP40CA4 PO; +PROZ10CA7 PO
[2023-09-30 02:31] VITALS: BP 127/58; TEMP 97.1; O2SAT 100
[2023-09-30 02:58] LABS: BASO % 0.8 % (0.0-1.0); EOS # 0.1 10^3/uL (0.0-0.5); EOS % 1.7 % (0.0-3.0); HEMATOCRIT 30.1 % (36.0-47.0); HEMOGLOBIN 9.2 g/dl (12.0-15.5); LYMPH # 2.2 10^3/uL (1.5-5.0); LYMPH % 47.1 % (24.0-44.0); MEAN CORPUSCULAR HEMOGLOBIN 24.3 pg (27.0-33.0); MEAN CORPUSCULAR HGB CONC 30.6 g/dl (32.0-36.5); MEAN CORPUSCULAR VOLUME 79.4 fl (80.0-96.0); MONO # 0.4 10^3/uL (0.0-0.8); NEUTROPHILS % 42.2 % (36.0-66.0); PLATELET COUNT, AUTOMATED 229 10^3/uL (150-450); RED BLOOD COUNT 3.79 10^6/uL (4.00-5.40); WHITE BLOOD COUNT 4.8 10^3/uL (4.0-10.0)
[2023-09-30 03:43] LABS: CK-MB VALUE MASS < 1.0 NG/ML (<3.6); LIPASE 43 U/L (12-53)
[2023-09-30 03:45] LABS: CPK CREATINE PHOSPHOKINASE 81 U/L (34-145); MB/CK RELATIVE INDEX 1.23 (< OR =4)
[2023-09-30 03:46] LABS: ALBUMIN 3.7 G/DL (3.2-5.2); ALKALINE PHOSPHATASE 92 U/L (46-116); ALT/SGPT 25 U/L (7.0-40); AST/SGOT 23 U/L (<34); BILIRUBIN,DIRECT < 0.1 MG/DL (<0.4); BILIRUBIN,TOTAL 0.2 MG/DL (0.3-1.2); BLOOD UREA NITROGEN 15 MG/DL (9-23); CALCIUM LEVEL 8.5 MG/DL (8.5-10.1); CARBON DIOXIDE LEVEL 24 MMOL/L (20-31); CHLORIDE LEVEL 110 MMOL/L (98-107); CREATININE FOR GFR 0.56 MG/DL (0.55-1.30); GLOMERULAR FILTRATION RATE > 60.0 (>60); GLUCOSE, FASTING 84 MG/DL (60-100); POTASSIUM SERUM 4.1 MMOL/L (3.5-5.1); SODIUM LEVEL 143 MMOL/L (136-145); TOTAL PROTEIN 6.4 G/DL (5.7-8.2)
[2023-09-30 03:47] LABS: FREE T4 0.95 NG/DL (0.89-1.76)
[2023-09-30 03:48] LABS: THYROID STIMULATING HORMONE 2.477 uIU/ML (0.55-4.78)
== END 2023-09-30 05:19 | disposition left against medical advice (07) ==
LOC: M ED 02:18 → EDBD 02:18 → M ED 05:19
DX: Z53.21 Procedure and treatment not carried out due to patient leaving prior to being seen by health care provider (principal)

== ENCOUNTER → 2024-01-15 | Outpatient (CLI) | payer MEDICARE, MEDICAID ==
[~2024-01-15] MED LIST changes: +CIPR-249 PO; +ERGO500029; +FERR325T19; +FLUO-290; +FLUO-290 PO; -FLUO10CA18; -FLUO10CA18 PO; +ISOVUE-370 76% 100ML VIAL As Ordered ONE; +METF500T13; +ONDA-282 PO; -ONDA4TAB6 PO
== END ==
LOC: MERGE 10-19 15:30 → M RAD 16:55
PROVIDERS: ATTEND Student in an Organized Health Care Education/Training Program
DX: K13.70 Unspecified lesions of oral mucosa (principal)
CPT/HCPCS: 70487; Q9967

== ENCOUNTER → 2024-03-21 | Outpatient (CLI) | payer MEDICARE, MEDICAID ==
[~2024-03-21] MED LIST changes: -ISOVUE-370 76% 100ML VIAL As Ordered ONE
== END ==
LOC: M RAD 10:21
PROVIDERS: ATTEND Physician Assistant
DX: R52 Pain, unspecified (principal)

== ENCOUNTER 2024-04-03 23:35 | Emergency (ER) | payer MEDICAID, MEDICARE, OTHER, SELFPAY ==
[~2024-04-03] VITALS: Ht 167.6 cm; Wt 93.8 kg
[2024-04-04 01:20] LABS: BASO % 0.5 % (0.0-1.0); EOS # 0.1 10^3/uL (0.0-0.5); EOS % 1.5 % (0.0-3.0); HEMATOCRIT 41.3 % (36.0-47.0); HEMOGLOBIN 13.7 g/dl (12.0-15.5); LYMPH # 1.8 10^3/uL (1.5-5.0); LYMPH % 27.6 % (24.0-44.0); MEAN CORPUSCULAR HEMOGLOBIN 30.6 pg (27.0-33.0); MEAN CORPUSCULAR HGB CONC 33.2 g/dl (32.0-36.5); MEAN CORPUSCULAR VOLUME 92.2 fl (80.0-96.0); MONO # 0.6 10^3/uL (0.0-0.8); MONO % 8.9 % (2.0-8.0); NEUTROPHILS # 4.1 10^3/uL (1.5-8.5); NEUTROPHILS % 61.3 % (36.0-66.0); PLATELET COUNT, AUTOMATED 216 10^3/uL (150-450); RED BLOOD COUNT 4.48 10^6/uL (4.00-5.40); WHITE BLOOD COUNT 6.7 10^3/uL (4.0-10.0)
[2024-04-04 01:37] LABS: CK-MB VALUE MASS < 1.0 NG/ML (<3.6)
[2024-04-04 01:38] LABS: BLOOD UREA NITROGEN 27 MG/DL (9-23); CALCIUM LEVEL 9.6 MG/DL (8.5-10.1); CARBON DIOXIDE LEVEL 22 MMOL/L (20-31); CHLORIDE LEVEL 110 MMOL/L (98-107); CPK CREATINE PHOSPHOKINASE 253 U/L (34-145); CREATININE FOR GFR 0.54 MG/DL (0.55-1.30); GLOMERULAR FILTRATION RATE > 60.0 (>60); GLUCOSE, FASTING 95 MG/DL (60-100); MB/CK RELATIVE INDEX 0.39 (< OR =4); POTASSIUM SERUM 4.2 MMOL/L (3.5-5.1); SODIUM LEVEL 139 MMOL/L (136-145)
[2024-04-04] MEDS: dilTIAZem 25MG/5ML VIAL IV STA ×2 (03:15→05:55)
[2024-04-04 04:14] LABS: CPK CREATINE PHOSPHOKINASE 237 U/L (34-145)
[2024-04-04 04:16] LABS: CK-MB VALUE MASS < 1.0 NG/ML (<3.6); MB/CK RELATIVE INDEX 0.42 (< OR =4)
[2024-04-04] MEDS ORDERED: CARD60TA3 PO (06:47)
[2024-04-04 06:50] VITALS: BP 138/75
[2024-04-04] MEDS: dilTIAZem 60 MG TAB PO ONE (06:50)
[2024-04-04 07:00] VITALS: BP 113/67; TEMP 98.4; O2SAT 95
== END 2024-04-04 07:24 | disposition home or self-care (01) ==
LOC: M ED 23:35
DX: I48.91 Unspecified atrial fibrillation (principal); Z79.2 Long term (current) use of antibiotics; Z79.4 Long term (current) use of insulin; Z79.899 Other long term (current) drug therapy; Z91.030 Bee allergy status; Z98.84 Bariatric surgery status

== ENCOUNTER → 2024-04-04 | Outpatient (REF) | payer MEDICARE, MEDICAID ==
[~2024-04-04] MED LIST changes: +CARD60TA3 PO
[2024-04-04 18:56] LABS: CHOLESTEROL RISK RATIO 2.51 (<5); HDL CHOLESTEROL 70.3 MG/DL (>40); LDL CHOLESTEROL 92.1 MG/DL (<100); NON-HDL-C 106.7 MG/DL
[2024-04-04 18:57] LABS: THYROID STIMULATING HORMONE 1.539 uIU/ML (0.55-4.78)
[2024-04-04 18:58] LABS: FREE T4 1.25 NG/DL (0.89-1.76)
[2024-04-04 19:45] LABS: HEMOGLOBIN A1c 5.1 % (4.0-6.0)
== END ==
LOC: M LAB REF 16:46
PROVIDERS: ATTEND Nurse Practitioner Family
DX: E66.9 Obesity, unspecified (principal); I48.91 Unspecified atrial fibrillation; Z79.899 Other long term (current) drug therapy

== ENCOUNTER → 2024-04-10 | Outpatient (CLI) | payer MEDICARE, MEDICAID | LOC: M RAD 16:57 | PROVIDERS: ATTEND Otolaryngology | DX: J32.0 Chronic maxillary sinusitis (principal); J34.1 Cyst and mucocele of nose and nasal sinus ==

== ENCOUNTER → 2024-05-01 | Outpatient (CLI) | payer MEDICARE, MEDICAID ==
[2024-05-01 11:36] LABS: BASO % 0.8 % (0.0-1.0); EOS # 0.1 10^3/uL (0.0-0.5); EOS % 1.8 % (0.0-3.0); HEMATOCRIT 37.9 % (36.0-47.0); HEMOGLOBIN 12.4 g/dl (12.0-15.5); LYMPH # 1.6 10^3/uL (1.5-5.0); LYMPH % 41.7 % (24.0-44.0); MEAN CORPUSCULAR HEMOGLOBIN 30.5 pg (27.0-33.0); MEAN CORPUSCULAR HGB CONC 32.7 g/dl (32.0-36.5); MEAN CORPUSCULAR VOLUME 93.3 fl (80.0-96.0); MONO # 0.4 10^3/uL (0.0-0.8); MONO % 9.2 % (2.0-8.0); NEUTROPHILS # 1.8 10^3/uL (1.5-8.5); NEUTROPHILS % 46.5 % (36.0-66.0); PLATELET COUNT, AUTOMATED 196 10^3/uL (150-450); RED BLOOD COUNT 4.06 10^6/uL (4.00-5.40); WHITE BLOOD COUNT 3.8 10^3/uL (4.0-10.0)
[2024-05-01 12:00] LABS: INR 0.9; PROTHROMBIN TIME 12.5 SECONDS (12.5-14.5)
[2024-05-01 12:07] LABS: ALBUMIN 3.9 G/DL (3.2-5.2); ALKALINE PHOSPHATASE 78 U/L (35-104); ALT/SGPT 22 U/L (7.0-40); AST/SGOT 10 U/L (<34); BILIRUBIN,TOTAL 0.5 MG/DL (0.3-1.2); BLOOD UREA NITROGEN 18 MG/DL (9-23); CALCIUM LEVEL 9.7 MG/DL (8.5-10.1); CARBON DIOXIDE LEVEL 29 MMOL/L (20-31); CHLORIDE LEVEL 104 MMOL/L (98-107); CHOLESTEROL LEVEL 183 MG/DL (<200); CHOLESTEROL RISK RATIO 2.74 (<5); CREATININE FOR GFR 0.59 MG/DL (0.55-1.30); GLOMERULAR FILTRATION RATE > 60.0 (>60); GLUCOSE, FASTING 82 MG/DL (60-100); HDL CHOLESTEROL 66.7 MG/DL (>40); LDL CHOLESTEROL 100.9 MG/DL (<100); NON-HDL-C 116.3 MG/DL; POTASSIUM SERUM 4.3 MMOL/L (3.5-5.1); SODIUM LEVEL 138 MMOL/L (136-145); TOTAL PROTEIN 7.1 G/DL (5.7-8.2); TRIGLYCERIDES LEVEL 77 MG/DL (<150)
== END ==
LOC: M LAB 10:15
PROVIDERS: ATTEND Internal Medicine Cardiovascular Disease
DX: Z01.810 Encounter for preprocedural cardiovascular examination (principal); Z79.84 Long term (current) use of oral hypoglycemic drugs

== ENCOUNTER 2024-06-07 17:02 | Emergency (ER) | payer MEDICARE, MEDICAID ==
[~2024-06-07 17:02] MED LIST changes: +ELIQ5TAB; +METO1TAB87; +PANT40TA29
[2024-06-07 17:12] VITALS: TEMP 97.5
[2024-06-07 17:37] LABS: BASO % 0.4 % (0.0-1.0); EOS # 0.1 10^3/uL (0.0-0.5); EOS % 1.4 % (0.0-3.0); HEMOGLOBIN 13.3 g/dl (12.0-15.5); LYMPH # 1.9 10^3/uL (1.5-5.0); LYMPH % 37.1 % (24.0-44.0); MEAN CORPUSCULAR HGB CONC 33.3 g/dl (32.0-36.5); MEAN CORPUSCULAR VOLUME 93.2 fl (80.0-96.0); MONO # 0.4 10^3/uL (0.0-0.8); MONO % 6.8 % (2.0-8.0); NEUTROPHILS # 2.8 10^3/uL (1.5-8.5); NEUTROPHILS % 54.1 % (36.0-66.0); PLATELET COUNT, AUTOMATED 194 10^3/uL (150-450); RED BLOOD COUNT 4.29 10^6/uL (4.00-5.40); WHITE BLOOD COUNT 5.2 10^3/uL (4.0-10.0)
[2024-06-07] MEDS: LIDOCAINE VISCOUS 2% SOLN 15ML UDC PO ONE (17:51)
[2024-06-07] MEDS: MAALOX 30 ML SUSP *UDC PO ONE (17:51)
[2024-06-07 18:05] LABS: CK-MB VALUE MASS < 1.0 NG/ML (<3.6); LIPASE 48 U/L (12-53)
[2024-06-07 18:07] LABS: ALKALINE PHOSPHATASE 89 U/L (35-104); ALT/SGPT 77 U/L (7.0-40); AST/SGOT 173 U/L (<34); BILIRUBIN,DIRECT 0.1 MG/DL (<0.4); BILIRUBIN,TOTAL 0.4 MG/DL (0.3-1.2); BLOOD UREA NITROGEN 17 MG/DL (9-23); CALCIUM LEVEL 9.3 MG/DL (8.5-10.1); CARBON DIOXIDE LEVEL 25 MMOL/L (20-31); CHLORIDE LEVEL 111 MMOL/L (98-107); CREATININE FOR GFR 0.56 MG/DL (0.55-1.30); GLOMERULAR FILTRATION RATE > 60.0 (>60); GLUCOSE, FASTING 91 MG/DL (60-100); POTASSIUM SERUM 4.2 MMOL/L (3.5-5.1); SODIUM LEVEL 140 MMOL/L (136-145); TOTAL PROTEIN 7.2 G/DL (5.7-8.2)
[2024-06-07 18:09] LABS: THYROID STIMULATING HORMONE 1.541 uIU/ML (0.55-4.78)
[2024-06-07 18:11] LABS: CPK CREATINE PHOSPHOKINASE 140 U/L (34-145); MB/CK RELATIVE INDEX 0.71 (< OR =4)
[2024-06-07 18:15] VITALS: BP 121/63; O2SAT 100
[2024-06-07 18:56] LABS: CK-MB VALUE MASS < 1.0 NG/ML (<3.6)
[2024-06-07 18:58] LABS: CPK CREATINE PHOSPHOKINASE 119 U/L (34-145); MB/CK RELATIVE INDEX 0.84 (< OR =4)
[2024-06-07] MEDS ORDERED: SUCR1SS PO (19:01)
== END 2024-06-07 19:13 | disposition home or self-care (01) ==
LOC: M ED 17:02 → EDBD 17:02 → M ED 19:13
DX: R07.9 Chest pain, unspecified (principal); G47.33 Obstructive sleep apnea (adult) (pediatric); I10 Essential (primary) hypertension; Z86.79 Personal history of other diseases of the circulatory system; Z79.01 Long term (current) use of anticoagulants; Z91.030 Bee allergy status; Z79.899 Other long term (current) drug therapy

== ENCOUNTER → 2024-07-01 | Outpatient (REF) | payer MEDICARE, MEDICAID ==
[~2024-07-01] MED LIST changes: +SUCR1SS PO
[2024-07-01 20:46] LABS: APPEARANCE, URINE HAZY (CLEAR); BACTERIA, URINE AUTO 1+ (NEGATIVE); BILIRUBIN, URINE AUTO NEGATIVE (NEGATIVE); BLOOD, URINE BLOOD NEGATIVE (NEGATIVE); COLOR, URINE YELLOW (YELLOW); GLUCOSE, URINE (UA) AUTO NEGATIVE (NEGATIVE); KETONE, URINE AUTO NEGATIVE (NEGATIVE); LEUKOCYTE ESTERASE, URINE AUTO 2+ (NEGATIVE); MUCUS, URINE SMALL (NEGATIVE); NITRITE, URINE AUTO NEGATIVE (NEGATIVE); PROTEIN, URINE AUTO NEGATIVE (NEGATIVE); RBC, URINE AUTO 1 /HPF (0-3); SPECIFIC GRAVITY URINE AUTO 1.026 (1.002-1.035); SQUAMOUS EPITHELIAL CELL UR AU 5 /HPF (0-6); WBC, URINE AUTO 2 /HPF (0-3)
== END ==
LOC: M LAB REF 20:09
PROVIDERS: ATTEND Physician Assistant Medical
DX: N39.0 Urinary tract infection, site not specified (principal)

== ENCOUNTER 2024-08-29 00:11 | Emergency (ER) | payer MEDICARE, MEDICAID ==
[~2024-08-29] VITALS: Ht 167.6 cm; Wt 99.8 kg
[2024-08-29 00:16] VITALS: BP 145/67; TEMP 97.5; O2SAT 100
== END 2024-08-29 01:16 | disposition left against medical advice (07) ==
LOC: M ED 00:11
DX: Z53.21 Procedure and treatment not carried out due to patient leaving prior to being seen by health care provider (principal)

== ENCOUNTER → 2024-09-16 | Outpatient (REF) | payer MEDICARE, MEDICAID | LOC: M LAB REF 08:20 | PROVIDERS: ATTEND Surgery | DX: Q82.8 Other specified congenital malformations of skin (principal) ==

== ENCOUNTER → 2024-09-26 | Outpatient (CLI) | payer MEDICARE, MEDICAID | LOC: M EKG 09:14 | PROVIDERS: ATTEND Nurse Practitioner Family | DX: R42 Dizziness and giddiness (principal); Z53.9 Procedure and treatment not carried out, unspecified reason ==

== ENCOUNTER → 2024-10-02 | Outpatient (CLI) | payer MEDICARE, MEDICAID ==
[~2024-10-02] MED LIST changes: +ISOVUE-370 76% 100ML VIAL As Ordered ONE
== END ==
LOC: M RAD 08:01
PROVIDERS: ATTEND Student in an Organized Health Care Education/Training Program
DX: K13.70 Unspecified lesions of oral mucosa (principal); J34.1 Cyst and mucocele of nose and nasal sinus
CPT/HCPCS: 70487; Q9967

== ENCOUNTER 2025-01-16 22:05 | Emergency (ER) | payer MEDICARE, MEDICAID ==
[~2025-01-16] VITALS: Ht 167.6 cm; Wt 104.5 kg
[~2025-01-16 22:05] MED LIST changes: -ISOVUE-370 76% 100ML VIAL As Ordered ONE; -METO1TAB87; +METO1TAB87 PO; +PROZ10CA11 PO; -PROZ10CA7 PO
[2025-01-16] MEDS: METOPROLOL 5 MG/5 ML VIAL IV SCH (22:15)
[2025-01-16 22:28] VITALS: BP 133/67
[2025-01-16] MEDS: NS 500 ML IV ONE (22:28)
[2025-01-16] MEDS ORDERED: METOPROLOL TART 25 MG TABLET PO ONE (22:30)
[2025-01-16 22:39] LABS: BASO # 0.0 10^3/uL (0.0-0.2); BASO % 0.1 % (0.0-1.0); EOS # 0.0 10^3/uL (0.0-0.5); EOS % 0.0 % (0.0-3.0); LYMPH # 1.3 10^3/uL (1.5-5.0); LYMPH % 12.7 % (24.0-44.0); MONO # 0.8 10^3/uL (0.0-0.8); MONO % 7.5 % (2.0-8.0); NEUTROPHILS # 8.0 10^3/uL (1.5-8.5); NEUTROPHILS % 79.5 % (36.0-66.0); PLATELET COUNT, AUTOMATED 206 10^3/uL (150-450)
[2025-01-16 23:01] LABS: CALCIUM LEVEL 8.7 MG/DL (8.5-10.1); CARBON DIOXIDE LEVEL 23 MMOL/L (20-31); CHLORIDE LEVEL 108 MMOL/L (98-107); CREATININE FOR GFR 0.65 MG/DL (0.55-1.30); GLOMERULAR FILTRATION RATE > 90.0 (>60); MAGNESIUM LEVEL 1.8 MG/DL (1.8-2.4); POTASSIUM SERUM 4.3 MMOL/L (3.5-5.1); SODIUM LEVEL 143 MMOL/L (136-145)
[2025-01-16] MEDS ORDERED: NITR100C2 PO (23:47)
[2025-01-16] MEDS ORDERED: ACET-907 PO (23:47)
[2025-01-16] MEDS ORDERED: HOME MED LIST COMPLETE! XX SCH (23:50)
[2025-01-17 01:00] VITALS: BP 115/56; TEMP 98.3; O2SAT 98
== END 2025-01-17 01:10 | disposition home or self-care (01) ==
LOC: M ED 22:05
DX: R00.2 Palpitations (principal); I48.91 Unspecified atrial fibrillation; F41.9 Anxiety disorder, unspecified; F32.A Depression, unspecified; Z91.030 Bee allergy status; Z79.1 Long term (current) use of non-steroidal anti-inflammatories (NSAID); Z79.899 Other long term (current) drug therapy
CPT/HCPCS: 71045; 80048; 83735; 85025; 93005; 96360; 96361; 99284; J0616

== ENCOUNTER → 2025-01-24 | Outpatient (CLI) | payer MEDICAID ==
[~2025-01-24] MED LIST changes: +ACET-907 PO; +NITR100C2 PO
[2025-01-24 08:27] LABS: BASO # 0.0 10^3/uL (0.0-0.2); BASO % 0.5 % (0.0-1.0); EOS # 0.1 10^3/uL (0.0-0.5); EOS % 2.1 % (0.0-3.0); LYMPH # 2.1 10^3/uL (1.5-5.0); LYMPH % 37.1 % (24.0-44.0); MONO # 0.5 10^3/uL (0.0-0.8); MONO % 9.3 % (2.0-8.0); NEUTROPHILS # 2.9 10^3/uL (1.5-8.5); NEUTROPHILS % 50.8 % (36.0-66.0); PLATELET COUNT, AUTOMATED 214 10^3/uL (150-450)
[2025-01-24 08:56] LABS: CALCIUM LEVEL 8.8 MG/DL (8.5-10.1); CARBON DIOXIDE LEVEL 26 MMOL/L (20-31); CHLORIDE LEVEL 105 MMOL/L (98-107); CREATININE FOR GFR 0.74 MG/DL (0.55-1.30); GLOMERULAR FILTRATION RATE > 90.0 (>60); POTASSIUM SERUM 4.0 MMOL/L (3.5-5.1); SODIUM LEVEL 143 MMOL/L (136-145)
== END ==
LOC: M LAB 07:30
PROVIDERS: ATTEND Internal Medicine Cardiovascular Disease
DX: I48.19 Other persistent atrial fibrillation (principal)

== ENCOUNTER 2025-04-08 18:56 | Emergency (ER) | payer MEDICARE, MEDICAID ==
[2025-04-08 19:05] VITALS: TEMP 98.6
[2025-04-08 19:33] LABS: BASO # 0.0 10^3/uL (0.0-0.2); BASO % 0.6 % (0.0-1.0); EOS # 0.0 10^3/uL (0.0-0.5); EOS % 0.7 % (0.0-3.0); LYMPH # 1.8 10^3/uL (1.5-5.0); LYMPH % 33.7 % (24.0-44.0); MONO # 0.3 10^3/uL (0.0-0.8); MONO % 6.2 % (2.0-8.0); NEUTROPHILS # 3.1 10^3/uL (1.5-8.5); NEUTROPHILS % 58.8 % (36.0-66.0); PLATELET COUNT, AUTOMATED 208 10^3/uL (150-450)
[2025-04-08] MEDS: NS (Normal Saline) 0.9% 1,000 ML IV SCH (20:04)
[2025-04-08 20:06] LABS: CK-MB VALUE MASS < 1.0 NG/ML (<3.6)
[2025-04-08 20:08] LABS: CALCIUM LEVEL 8.5 MG/DL (8.5-10.1); CARBON DIOXIDE LEVEL 24 MMOL/L (20-31); CHLORIDE LEVEL 108 MMOL/L (98-107); CREATININE FOR GFR 0.55 MG/DL (0.55-1.30); GLOMERULAR FILTRATION RATE > 90.0 (>60); POTASSIUM SERUM 4.5 MMOL/L (3.5-5.1); SODIUM LEVEL 142 MMOL/L (136-145)
[2025-04-08 20:09] LABS: CPK CREATINE PHOSPHOKINASE 90 U/L (34-145)
[2025-04-08 21:10] LABS: CK-MB VALUE MASS < 1.0 NG/ML (<3.6)
[2025-04-08 21:11] LABS: CPK CREATINE PHOSPHOKINASE 80 U/L (34-145)
[2025-04-08 21:57] VITALS: BP 124/60; O2SAT 98
== END 2025-04-08 22:16 | disposition home or self-care (01) ==
LOC: M ED 18:56 → EDBD 18:56 → M ED 22:16
DX: R00.2 Palpitations (principal); R00.1 Bradycardia, unspecified; I10 Essential (primary) hypertension; Z98.84 Bariatric surgery status; Z91.030 Bee allergy status; Z79.1 Long term (current) use of non-steroidal anti-inflammatories (NSAID); Z79.899 Other long term (current) drug therapy

== ENCOUNTER 2025-04-10 20:02 | Emergency (ER) | payer MEDICARE, MEDICAID ==
[~2025-04-10] VITALS: Ht 167.6 cm; Wt 104.5 kg
[2025-04-10 20:13] VITALS: BP 135/71; TEMP 97.5; O2SAT 99
[2025-04-10 20:50] LABS: BASO # 0.0 10^3/uL (0.0-0.2); BASO % 0.5 % (0.0-1.0); EOS # 0.1 10^3/uL (0.0-0.5); EOS % 1.5 % (0.0-3.0); LYMPH # 1.6 10^3/uL (1.5-5.0); LYMPH % 26.3 % (24.0-44.0); MONO # 0.5 10^3/uL (0.0-0.8); MONO % 7.8 % (2.0-8.0); NEUTROPHILS # 3.9 10^3/uL (1.5-8.5); NEUTROPHILS % 63.9 % (36.0-66.0); PLATELET COUNT, AUTOMATED 235 10^3/uL (150-450)
[2025-04-10 21:02] LABS: INR 0.88
[2025-04-10 21:22] LABS: CK-MB VALUE MASS < 1.0 NG/ML (<3.6)
[2025-04-10 21:23] LABS: CALCIUM LEVEL 9.1 MG/DL (8.5-10.1); CARBON DIOXIDE LEVEL 27 MMOL/L (20-31); CHLORIDE LEVEL 109 MMOL/L (98-107); CPK CREATINE PHOSPHOKINASE 81 U/L (34-145); CREATININE FOR GFR 0.72 MG/DL (0.55-1.30); GLOMERULAR FILTRATION RATE > 90.0 (>60); POTASSIUM SERUM 4.4 MMOL/L (3.5-5.1); SODIUM LEVEL 143 MMOL/L (136-145)
[2025-04-10 21:42] LABS: HCG, SERUM QUALITATIVE NEGATIVE (NEGATIVE)
== END 2025-04-10 22:30 | disposition left against medical advice (07) ==
LOC: M ED 20:02
DX: Z53.21 Procedure and treatment not carried out due to patient leaving prior to being seen by health care provider (principal)

== ENCOUNTER → 2025-04-18 | Outpatient (REF) | payer MEDICARE, MEDICAID ==
[2025-04-18 16:15] LABS: CHOLESTEROL LEVEL 175.0 MG/DL (<200); CHOLESTEROL RISK RATIO 2.79 (<5); LDL CHOLESTEROL 93.4 MG/DL (<100); NON-HDL-C 112.4 MG/DL; TRIGLYCERIDES LEVEL 95.0 MG/DL (<150)
[2025-04-18 16:28] LABS: ESTIMATED AVERAGE GLUCOSE 103.0 MG/DL (60-110)
== END ==
LOC: M LAB REF 14:41
PROVIDERS: ATTEND Nurse Practitioner Family
DX: E66.9 Obesity, unspecified (principal); Z68.32 Body mass index [BMI] 32.0-32.9, adult; Z79.899 Other long term (current) drug therapy

== ENCOUNTER 2025-04-28 15:29 | Emergency (ER) | payer MEDICARE, MEDICAID ==
[~2025-04-28] VITALS: Ht 167.6 cm; Wt 107.6 kg
[2025-04-28 16:24] LABS: BASO # 0.0 10^3/uL (0.0-0.2); BASO % 0.9 % (0.0-1.0); EOS # 0.1 10^3/uL (0.0-0.5); EOS % 2.0 % (0.0-3.0); LYMPH # 1.7 10^3/uL (1.5-5.0); LYMPH % 37.8 % (24.0-44.0); MONO # 0.4 10^3/uL (0.0-0.8); MONO % 8.3 % (2.0-8.0); NEUTROPHILS # 2.3 10^3/uL (1.5-8.5); NEUTROPHILS % 50.8 % (36.0-66.0); PLATELET COUNT, AUTOMATED 231 10^3/uL (150-450)
[2025-04-28 16:47] LABS: ALT/SGPT 22 U/L (7.0-40); AST/SGOT 31 U/L (<34); CALCIUM LEVEL 8.9 MG/DL (8.5-10.1); CARBON DIOXIDE LEVEL 28 MMOL/L (20-31); CHLORIDE LEVEL 104 MMOL/L (98-107); CK-MB VALUE MASS < 1.0 NG/ML (<3.6); CREATININE FOR GFR 0.52 MG/DL (0.55-1.30); GLOMERULAR FILTRATION RATE > 90.0 (>60); POTASSIUM SERUM 4.5 MMOL/L (3.5-5.1); SODIUM LEVEL 140 MMOL/L (136-145)
[2025-04-28] MEDS: PANTOPRAZOLE 40MG VIAL IV ONE (16:47)
[2025-04-28 16:48] LABS: FREE T4 0.99 NG/DL (0.89-1.76)
[2025-04-28 16:49] LABS: CPK CREATINE PHOSPHOKINASE 76 U/L (34-145)
[2025-04-28 17:00] VITALS: BP 143/77
[2025-04-28] MEDS: GI COCKTAIL 50 ML BTL(HYOSCYAMINE/MAALOX/LIDOCAINE VISCOUS)(1:3:1) PO ONE (17:01)
[2025-04-28 17:10] VITALS: O2SAT 98
[2025-04-28] MEDS ORDERED: OMEP40CA4 PO (17:15)
[2025-04-28] MEDS ORDERED: CARA1TAB6 PO (17:15)
[2025-04-28 17:33] VITALS: TEMP 97.8
== END 2025-04-28 17:34 | disposition home or self-care (01) ==
LOC: M ED 15:29
DX: K21.9 Gastro-esophageal reflux disease without esophagitis (principal); F32.9 Major depressive disorder, single episode, unspecified; F41.9 Anxiety disorder, unspecified; Z91.030 Bee allergy status; Z86.79 Personal history of other diseases of the circulatory system; Z79.01 Long term (current) use of anticoagulants; Z79.1 Long term (current) use of non-steroidal anti-inflammatories (NSAID); Z79.899 Other long term (current) drug therapy
CPT/HCPCS: 74021; 80048; 80076; 82550; 82553; 83690; 84439; 84443; 84484; 85025; 93005; 93041; 94760; 96374; 99285; J2470